=== PATIENT | female | born 1970 | race Caucasian/White ===

== ENCOUNTER → 2022-03-30 15:04 | Outpatient (BNVA) | payer OTHER, SELFPAY | PROVIDERS: PCP Internal Medicine; Visit Provider Nurse Practitioner Family | DX: G43.109 Migraine with aura, not intractable, without status migrainosus (principal); G47.19 Other hypersomnia; F07.81 Postconcussional syndrome; R06.83 Snoring; H57.12 Ocular pain, left eye; H93.8X2 Other specified disorders of left ear; Z79.899 Other long term (current) drug therapy | CPT/HCPCS: 99212 ==

== ENCOUNTER → 2022-04-10 13:03 | Outpatient (REF) | payer OTHER, SELFPAY | LOC: HO.SL 13:03 | PROVIDERS: PCP Internal Medicine; Visit Provider Nurse Practitioner Family | DX: G47.19 Other hypersomnia (principal); R06.83 Snoring; G47.9 Sleep disorder, unspecified | CPT/HCPCS: 95806 ==

== ENCOUNTER → 2022-06-08 14:45 | Outpatient (BNVA) | payer OTHER, SELFPAY | PROVIDERS: PCP Internal Medicine; Visit Provider Nurse Practitioner Family | DX: G93.2 Benign intracranial hypertension (principal); G43.109 Migraine with aura, not intractable, without status migrainosus; H57.12 Ocular pain, left eye; H93.8X2 Other specified disorders of left ear | CPT/HCPCS: 99212 ==

== ENCOUNTER 2022-07-24 09:40 | Day surgery (SDC) | payer OTHER, SELFPAY ==
--- NOTE | ~2022-07-24 | FL_ITS ---
EXAMINATION: XR LUMBAR PUNCTURE CLINICAL INFORMATION: Ocular pain left eye. Headache. COMPARISON: None available. TECHNIQUE/findings: Procedure and risks and benefits including bleeding, infection and headache were discussed with the patient and informed consent was obtained. The patient was positioned in the prone position. The lower back was prepped and draped in usual sterile fashion. The skin and soft tissues were anesthetized with 1% lidocaine plain. Using fluoroscopy guidance and initially a 22-gauge spinal, attempted access in the right interlaminar space at L3-L4 was made. This was unsuccessful. Subsequently, attempted access at the right interlaminar space at L4-L5 was made. This was unsuccessful. Subsequently, left interlaminar access at L4-L5 to the spinal canal was obtained using a 20-gauge spinal needle. Opening pressure was 21-22 cm of water. 6.5 mL of CSF fluid was removed FLUOROSCOPY TIME: 3.6 minutes Cumulative dose: 1 43 mgy. DAP 1.9 mg/sq m. 2 saved fluoroscopic images. FL/FL guided lumbar puncture LP IMPRESSION: Fluoroscopy-guided lumbar puncture.
[2022-07-24 09:55] VITALS: BMI 19.6
[2022-07-24 10:00] LABS: MANUAL DIFF FLAG NO
[2022-07-24 10:03] LABS: Basophils Percent Auto 0.8 % (0-2); Eosinophils Absolute Auto 0.2 X10*3/uL (0.0-0.4); Eosinophils Percent Auto 4.9 % (0-4); Hematocrit 34.2 % (37.0-47.0); Hemoglobin 10.6 g/dl (12.0-16.0); Lymphocytes Absolute Auto 1.9 X10*3/uL (1.2-4.9); Lymphocytes Percent Auto 51.2 % (20-40); Mean Corpuscular Hemoglobin 27.2 pg (27.0-33.0); Mean Corpuscular Volume 87.7 fL (80.0-98.0); Mean Platelet Volume 10.7 fL (9.4-12.3); Monocytes Absolute Auto 0.5 X10*3/uL (0.1-1.2); Neutrophils Absolute Auto 1.1 x10*3/uL (2.0-8.3); Neutrophils Percent Auto 29.1 % (45-73); Platelet Count 182 X10*3/uL (160-400); Red Cell Distribution Width 15.9 % (11.0-16.0); White Blood Count 3.7 X10*3/uL (4.8-10.8)
[2022-07-24 10:15] LABS: INTERNATIONAL NORM RATIO 0.9 (0.9-1.1); Prothrombin Time 10.2 SEC (10.0-13.1)
[2022-07-24 10:18] LABS: Partial Thromboplastin Time 30.5 SEC (26.0-36.4)
[2022-07-24 13:00] VITALS: BP 104/52; PULSE 58; RESP 20; TEMP 37.2; O2SAT 98
[2022-07-24 13:15] VITALS: BP 107/52; PULSE 54; RESP 18; O2SAT 99
[2022-07-24 13:30] VITALS: BP 112/66; PULSE 62; RESP 16; O2SAT 91
[2022-07-24 14:00] VITALS: BP 118/63; PULSE 65; RESP 16; O2SAT 99
[2022-07-24 14:30] VITALS: BP 127/73; PULSE 70; RESP 16
[2022-07-24 14:42] LABS: CSF Appearance Clear, Colorless; CSF Tube # 2
[2022-07-24 14:51] LABS: Glucose CSF 60 mg/dL; Total Protein CSF 22.7 mg/dL (15-45)
[2022-07-24 15:19] LABS: Appearance CSF HAZY
[2022-07-24 15:20] LABS: CSF Tube # 1; Color CSF PINK; Red Blood Cell CSF 182 MM*3; White Blood Cell CSF 0 MM*3
[2022-07-24 15:21] LABS: Appearance CSF CLEAR; CSF Tube # 4; CSF Volume 0.5 ML; Color CSF COLORLESS; Red Blood Cell CSF 0 MM*3; White Blood Cell CSF 0 MM*3
[2022-07-28 21:09] LABS: VDRL Qualitative CSF Nonreactive (Nonreactive)
== END 2022-07-24 14:58 | disposition home or self-care (01) ==
PROVIDERS: Radiology Diagnostic Radiology; PCP Internal Medicine; Visit Provider Nurse Practitioner Family
PROC: 009U3ZZ Drainage of Spinal Canal, Percutaneous Approach (ICD-10-PCS; CPT 62270; principal; 2022-07-24 11:00)
DX: H57.12 Ocular pain, left eye (principal); G93.2 Benign intracranial hypertension; G43.109 Migraine with aura, not intractable, without status migrainosus; H93.8X2 Other specified disorders of left ear; Z88.1 Allergy status to other antibiotic agents; Z88.2 Allergy status to sulfonamides; Z88.8 Allergy status to other drugs, medicaments and biological substances; Z91.040 Latex allergy status; L23.1 Allergic contact dermatitis due to adhesives
CPT/HCPCS: 36415; 62328; 82945; 84157; 85025; 85610; 85730; 86592; 87015; 87070; 87205; 89051

== ENCOUNTER 2023-06-28 08:42 | Outpatient (AMB) | payer OTHER, SELFPAY ==
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
[2023-06-28 08:57] VITALS: BP 124/70; PULSE 58; O2SAT 98; BMI 50.6
== END 2023-06-28 09:46 | disposition home or self-care (01) ==
PROVIDERS: PCP Internal Medicine; Visit Provider Nurse Practitioner Family
DX: G44.309 Post-traumatic headache, unspecified, not intractable (principal); F07.81 Postconcussional syndrome
CPT/HCPCS: 99214

== ENCOUNTER → 2023-06-28 08:42 | Outpatient (BNVA) | payer OTHER, SELFPAY | PROVIDERS: PCP Internal Medicine; Visit Provider Nurse Practitioner Family | DX: F07.81 Postconcussional syndrome (principal); G43.109 Migraine with aura, not intractable, without status migrainosus | CPT/HCPCS: 99212 ==

== ENCOUNTER 2024-01-06 15:26 | Outpatient (AMB) | payer OTHER, SELFPAY ==
[2024-01-06 15:33] VITALS: BMI 46.0
--- NOTE | 2024-01-06 15:33 | MHC.OFFVIS ---
Vital Signs 01/06/24 15:33 Height 5 ft 7 in Weight 294 lb BMI 46.0 Intake Visit Reasons: Follow up Intake Note: Patient presents for follow up. Allergies acetaminophen [From VICODIN] Allergy (Unknown, Verified 01/06/24 15:36) ITCHING adhesive tape Allergy (Unknown, Verified 01/06/24 15:36) Unknown cephalexin Allergy (Unknown, Verified 01/06/24 15:36) Itching clindamycin [CLINDAMYCIN] Allergy (Unknown, Verified 01/06/24 15:36) SWELLING codeine [CODEINE] Allergy (Unknown, Verified 01/06/24 15:36) ITCHING hydrocodone [HYDROCODONE] Allergy (Unknown, Verified 01/06/24 15:36) ITCHING hydromorphone Allergy (Unknown, Verified 01/06/24 15:36) Unknown Latex, Natural Rubber [LATEX, NATURAL RUBBER] Allergy (Unknown, Verified 01/06/24 15:36) SWELLING levofloxacin [From LEVAQUIN] Allergy (Unknown, Verified 01/06/24 15:36) SWELLING oxycodone [From Percocet] Allergy (Unknown, Verified 01/06/24 15:36) Itching phentermine [From Adipex-P] Allergy (Unknown, Verified 01/06/24 15:36) BLISTERS Sulfa (Sulfonamide Antibiotics) Allergy (Unknown, Verified 01/06/24 15:36) Itching tramadol [TRAMADOL] Allergy (Unknown, Verified 01/06/24 15:36) ITCHING SILK TAPE Allergy (Unknown, Uncoded 01/06/24 15:36) BLISTERS HPI Comments Details: 53-yr-old female presents for f/u visit for headache and sleep/hypersomnia d/o's. Pt reports that she had continued to have daytime fatigue, daytime sleepiness, and increasing migraines during the mid to end of the work week. She would then need to sleep for extended times. This was despite taking Adderall IR 10mg bid or 20mg IR qam. So her PCP did adjust her Adderall to Adderall Er 30mg qam w/ 10mg IR q afternoon prn- started on 12/25/2023. This dose does she more effective, although it may wear off between 12-1pm if she has a more active day and there is more background distractions. Avoiding coffee in the am helps- as this may make her more jittery. If she is sleepy, she may take a coffee at 12pm. She also started Wegovy ~ 4 weeks ago. She will be started on anemia tx w/ IV Iron infusions by Dr Shine, heme/onc. She states she is also being worked up for pancreatic CA d/t positive BRACA status. She did have the LP in July 2022, OP was 21-22 cmH2O w/ normal CSF studies. Her last eye exam did not show optic nerve swelling. She has an upcoming f/u eye exam. She continues to have 2-3 headache days per week, can be a 3 day headache or 3 separate 1-2 day headaches. She does have a more severe, disabling migraine 2 x's per month- which typically comes on through Saturday, w/ postdrome on Saturday but then can usually return to work. Having more nausea w/ attacks. She missed at least 1 week of work every month over the summer. She has not started Emgality as she was starting Wegovy and was not sure if she could take both together. She believes she has the loading dose at home. Using the Rizatriptan prn to - using only for the more severe headache, as she does not have enough. The Rizatriptan may not work at all. Has started prn Nurtec, usually effective if taken at the first sign. She may adjunct w/ Rizatriptan prn. Ondansetron is helpful for the nausea. Baseline headache characteristics: Aura: peripheral light flickering. F/b pain pressure in left than right eye, holocranial a/w photophobia, phonophobia, food sensitivity, nausea, vomiting if more severe, and difficulty sleeping when more severe. When the headache comes on w/o the aura, the headache is even more severe. [facility] [place] Medical History Osteoarthritis Osteoporosis BRCA2 gene mutation positive Anemia Surgical History H/O arthroscopy of shoulder History of reverse total replacement of shoulder joint H/O dilation and curettage History of bilateral fallopian tube excision H/O gastric bypass History of bunionectomy History of repair of rotator cuff History of carpal tunnel release History of shoulder surgery H/O breast implant History of breast surgery History of bilateral mastectomy History of bilateral oophorectomy Hx of ovarian cystectomy Hx of bariatric surgery Hx of appendectomy Hx of cholecystectomy Family History Mother Diabetes Carcinoma in situ of breast Malignant neoplasm of breast (female) Arthritis Father Carcinoma in situ of lung Paternal Grandfather Disease of liver Brother Depressive disorder Daughter ADHD (attention deficit hyperactivity disorder) Social History Alcohol intake: current Alcohol intake frequency: holidays/special occasions only Patient Tobacco Use Status: Never used Tobacco Physical Exam Vital Signs: BMI result Body Mass Index 46.0 Const General: cooperative, no acute distress and tired appearing Orientation/consciousness: patient oriented x3 Resp Effort & Inspection: normal respiratory effort and able to speak in complete sentences Neuro General: patient oriented x3 Cranial nerves: Yes CN's II-XII intact bilaterally Cognition (Neuro): normal cognition Psych Appearance: grossly normal Mental Status: mental status grossly normal Speech and movement: Normal speech and movement present Affect: normal affect Attitude: cooperative Assessment & Plan Assessment & Plan (1) Postconcussive syndrome: Code(s): F07.81 - Postconcussional syndrome Category: Medical (2) Migraine with aura: Code(s): G43.109 - Migraine with aura, not intractable, without status migrainosus Category: Medical (3) Excessive daytime sleepiness: Code(s): G47.19 - Other hypersomnia Category: Medical Plan Reviewed LP, in July 2022, OP was 21-22 cmH2O w/ normal CSF studies. Last eye exam did not show optic nerve swelling. Again f/u eye exam as scheduled. ? For overall headache and postconcussive management: Optimize good self-care, including but not limited to maintaining a healthy diet,? adequate fluid intake, adequate sleep, and engaging in regular physical activity. Track headaches. Concur with further optimizing her ADHDtx to reduce her cognitive strain, which may be triggering her end of work week migraine attacks. For acute headache treatment: Continue Nurtec ODT 75mg qd prn. May adjunct w/ Rizatripatn 10mg q 2 hs prn 9max 20mg/day). Continue Ondansetron ODT 4-8mg prn. Previous acute migraine medication trials: Sumatriptan- ineffective. Acute migraine medication contraindications: none at this time ? For headache prevention medication: Continue Riboflavin 400mg qam Continue Magnesium 400mg qhs Continue Verapamil 360mg qd. Continue Doxepin. Again start Emgality 240mg sc x's 1, then 120mg sc q month- however discussed that although side effect profile of CGRP MaBs are minimal, pt currently has a number of resolving health issues and will be undergoing major surgery, thus my request is for her to hold off on this until she is feeling better overall. Reviewed potential adverse effects of Emgality, including but not limited to injection site reactions. Previous migraine prevention medication trials: amitriptyline, topiramate gabapentin- ineffective.? Migraine prevention medication contraindications: I would avoid Aimovig d/t intermittent constipation and concomitant morphine use. Beta-blockers d/t bradycardia and pt already on higher dose of Verapamil. Future considerations- botox, acetazolamide. Coding Level of Care Code Est Pt Level 4 (56545) Diagnoses Postconcussive syndrome F07.81 Migraine with aura G43.109 Excessive daytime sleepiness G47.19
== END 2024-01-07 08:06 | disposition home or self-care (01) ==
PROVIDERS: PCP Internal Medicine; Visit Provider Nurse Practitioner Family
DX: G47.19 Other hypersomnia (principal); F07.81 Postconcussional syndrome; G44.309 Post-traumatic headache, unspecified, not intractable
CPT/HCPCS: 99214

== ENCOUNTER → 2024-01-06 15:26 | Outpatient (BNVA) | payer OTHER, SELFPAY | PROVIDERS: PCP Internal Medicine; Visit Provider Nurse Practitioner Family | DX: G43.109 Migraine with aura, not intractable, without status migrainosus (principal); G47.19 Other hypersomnia; F07.81 Postconcussional syndrome | CPT/HCPCS: 99212 ==

== ENCOUNTER 2024-07-30 15:06 | Outpatient (AMB) | payer OTHER, SELFPAY ==
[2024-07-30 15:09] VITALS: BP 110/60; PULSE 74; O2SAT 96; BMI 38.4
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
--- OUTSIDE RECORDS SUMMARY | 2024-07-30 15:45 | XMS_ITS | Clinical Summary ---
Author Organization [facility] Address [address] [place] [address] Phone Care Team Providers Care Hand Cutter Apprentice Name Role Phone Laurita Banegas MD Primary Care Provider [phone] Allergies Active Allergy Reactions Criticality Noted Date Comments Sulfamethoxazole-Trimethoprim 2024 Clindamycin 06/19/2024 Codeine 06/19/2024 Hydromorphone 06/19/2024 Cephalexin 06/19/2024 Latex 06/19/2024 Oxycodone-Acetaminophen 06/19/2024 Quinolones 06/19/2024 Tramadol 06/19/2024 Medications No known medications Active Problems No known active problems Encounters Date Type Department Care Team Description 06/19/2024 3:15 PM EDT Office Visit [facility] [address] [place] [address] Theo Camargo DO Other acute kidney failure (HCC) (Primary Dx); Monoclonal gammopathy of undetermined significance (MGUS) 06/16/2024 Documentation Only [facility] [address] [place] [address] Sophia Marley MA 06/16/2024 Telephone [facility] [address] [place] [address] Sophia Marley MA from Last 3 Months Social History Tobacco Use Types Packs/Day Years Used Date Smoking Tobacco: Never Assessed Comments Unknown Sex and Gender Information Value Date Recorded Sex Assigned at Not on file Legal Sex Female 9:03 AM EDT Gender Identity Not on file Sexual Orientation Not on file Plan of Treatment Upcoming Encounters Date Type Department Care Team (Late st Contact Info) Description 08/05/2024 4:00 PM EDT Office Visit [facility] [place], [address] [place] [id number] Theo Camargo, [address] [place] [address] Health Maintenance Due Date Last Done Comments Breast Cancer Screening 1970 Hepatitis B Vaccine (1 of 3 - 19+ 3-dose series) 09/13/1987 Pneumococcal Vaccine: 50+ Ye ars (1 of 2 - PCV) 09/13/1987 Colorectal Cancer Screening: Annual FOBT 2017 Colorectal Cancer Screening: Colonoscopy 2017 Colorectal Cancer Screening: Sigmoidoscopy 2017 Influenza Vaccine Completed 05/06/2024, , 01/30/2020, Additional history exists Insurance [facility] Medicaid Care Teams Hand Cutter Apprentice Relationship Specialty Start Date End Date Laurita Banegas MD [address] [facility] [address] [place] [address] PCP - General Family Medicine 06/16/24
--- OUTSIDE RECORDS SUMMARY | 2024-07-30 15:45 | XMS_ITS | Encounter Summary ---
Author Organization [facility] [place], Address [address] [place] [address] Phone Care Team Providers Care Can Maker Name Role Phone Laurita Banegas MD Primary Care Provider [phone]- [phone] Encounter Details Date Type Department Care Team (Late Contact Info) Description 06/16/2024 Documentation Only [facility] [address] [place] [place] [address] [place] [address] [place] [address] Social History Tobacco Use Types Packs/Day Years Used Date Smoking Tobacco: Never Assessed Comments Unknown Sex and Gender Information Value Date Recorded Sex Assigned at Not on file Legal Sex Female 9:03 AM EDT Gender Identity Not on file Sexual Orientation Not on file documented as of this encounter Plan of Treatment Upcoming Encounters Date Type Department Care Team (Late Contact Info) Description 08/05/2024 4:00 PM EDT Office Visit [facility] [address] [place] [address] Theo Camargo [address] [place] [address] documented as of this encounter Visit Diagnoses Not on filedocumented in this encounter Care Teams Can Maker Relationship Specialty Start Date End Date Laurita Banegas MD [address] [address] PCP - General Family Medicine 06/16/24 documented as of this encounter
--- OUTSIDE RECORDS SUMMARY | 2024-07-30 15:45 | XMS_ITS | Data Portability ---
Author Organization [place] - [facility], [facility] Address [address] [place] [id number] Care Team Providers Care Night Shift Supervisor Name Role Phone ARPITA-YU HOWARD Primary Care Provider [facility] OTHER Assessment Encounter Date Assessment Date Assessment LastModified by Organization Details LastModified Time 01/03/2019 01/03/2019 Overview/History : 48 yo female new to [facility] this provider who presents with complain of nausea, vomiting, diarrhea X12h. Patient reports that she had approximately 6-7 loose stools and vomited several times. She has been taking PO zofran that was prescribed for her along with pain medications she takes for pain due to recent lower extremity fracture. Patient denied fever, chills, abdominal pain, blood or mucus in the stool. Denied recent hospitalizations or abx treatment Comorbidities: HLD, HTN, gastric bypath surgery, recent right lower extremity fracture Exam: obese middle age female, who appears tired but otherwise well, no acute distress, non-toxic appearance; alert and oriented X4 Mucous membranes are mildly dry Heart sounds are regular rate and rhythm; no audible murmurs, rubs, or gallops No signs of respiratory distress. Lungs are clear to auscultation in all fileds Abdomen is soft, non tender, non distended. Bowel sounds are normoactive and present in all quadrants DDx considered, but not limited to: Gastroenteritis - most likely dx based on clinical presentation c.diff - unlikely; no recent abx treatment or hospitalizations pain medications side effets - possible; patient was recently started on pain medications for lower extremity fracture IBS - possible, however, no prior history and onset of symptoms is acute Work up/Results: Chem 8 - WNL Plan/Discussion: - based on clinical presentation and duration of symptoms, gastroenteritis is the most likely dx at this time - Zofran 4mg IV and NS IV bolus was given on scene for rehydration; patient tolerated procedure well - advised BRAT diet and PO fluids for hydration - Imodium for diarrhea - follow up with PCP as needed within 3-5 days or sooner if symptoms worsen or do not improve - advised when to seek immediate medical attention/911/ED - patient expressed understanding and agreed to tx plan In order to obtain further information and compare any laboratory results/values, I have accessed patient records on the [facility]. This information was pertinent in my medical decision making today. Time On Scene with Patient: 01:06:53 cesar Not available 01/03/2019 13:44:35 03/01/2019 03/01/2019 Overview/History : Pt is a 48yo F with PMH sig for HTN, HLD, and osteoporosis. Pt reports that she has been having intermittent redness, warmth and swelling to the right foot for the last few days but that it was worse today. She states that it has improved since when she called . She reports 5/10 pain to the area and states it is a dull ache most of the time but some times she gets jolts of pain. Exam: Pt is A/Ox3, non-toxic appearing, VSS, HRR, resp reg and unlabored on RA, lungs CTA bilat. Normal range of motion of right foot. Pt has a knee immobilizer in place d/t healing fracture to the right leg. Pt reports discomfort with palpation over the dorsal aspect of the foot to the lateral side. Trace edema noted to the right foot, good CMS present. Faint erythema noted over area of tenderness along with mild increase in warmth. No rash, or ecchymosis. Skin is clean dry and intact without evidence of wounds or lacerations. DDx considered, but not limited to: Swelling d/t healing fracture: pt has a healing fracture to the leg and leg is immoblized, swelling in foot may be related to this Cellultitis: possibe given reports of warmth, swelling and erythema, presentation is very mild and not clear for infection at time of visit Gout: unlikely given location of pain is to the lateral aspect of the foot. Septic joint: unlikely as sx are coming and going and erythema and warmth are mild. Work up/Results: no further work up at this time. Plan/Discussion: With shared decision making pt given script for doxy to use if sx worsen as pt has plans to fly to [place] on Saturday and will be out of the country. Pt advised to use only if swelling, redness and warmth become persistent and worse than at time of visit. Patients PCP contacted and updated on patient status. Patient verbalized understanding of discharge instructions and when to follow up with PCP/911/ED as needed. Patient in agreement with current plan and treatment. In order to obtain further information and compare any laboratory results/values, I have accessed old patient records. This information was pertinent in my medical decision making today. Time On Scene with Patient: 00:24:18 shannan Not available 03/01/2019 18:50:00 Plan of Treatment Reminders Order Date Submit Date Provider Last Modified By Organization Details Last Modified Time Details Appointments None recorded. Lab BMP + ionized calcium, serum or plasma [facility] [address] [place] [address], [phone], 12:55:30 Referral None recorded. Procedures None recorded. Surgeries None recorded. Imaging None recorded. Medication Orders doxycycli ne hyclate 100 mg tablet 2018 019 INTERFACE [id number], [address] [place], [address], 9 18:27:00 Imodium A-D 2 mg capsule 2018 019 shannan [id number], [address] [place], [address], 9 18:11:07 sodium chloride 0.9 % intraveno us solution 2018 019 shannan [id number], [address] [place], [address], 9 18:11:16 Zofran 2 mg/mL intraveno us solution 2018 019 shannan [id number], [address] [place], [address], 9 18:11:20 Patient TargetsNo targets recorded. Patient Instructions Encounter Date Encounter Id Patient Instructions Last Modified By Organization Details Last Modified Time 01/03/2019 [id number] diarrhea: care instructions cesar Not available 01/03/2019 12:55:30 Acute Nausea and Vomiting/Diarrhea YOU WERE SEEN FOR NAUSEA VOMITING AND DIARRHEA TODAY YOU HAVE GASTROENTERITIS MOST LIKELY OF VIRAL ETIOLOGY YOU WERE GIVEN ZOFRAN IV FOR NAUSEA AND IV FLUIDS FOR REHYDRATION YOUR BLOOD ELECTROLYTES WERE WITHIN NORMAL LIMITS PRESCRIPTION FOR IMODIUM WAS SEND TO YOUR PHARMACY PLEASE TAKE PRESCRIBED DRINK PLENTY OF FLUIDS TO STAY HYDRATED. GATORATE, SPORTS DRINKS OR PEDIALYTE ARE GOOD OPTIONS EAT BRAT (BANANA, RICE, APPLE SAUCE, TOAST) DIET UNTIL ABLE TO TOLERATE YOUR NORMAL DIET FOLLOW UP WITH YOUR PRIMARY CARE DOCTOR IF YOUR SYMPTOMS DO NOT RESOLVE IN 3-5 DAYS SEEK IMMEDIATE MEDICAL ATTENTION OR CALL 911 IF YOUR SYMPTOMS WORSEN OR IF YOU DEVELOP ANY NEW CONCERNING SYMPTOMS BASIC INFORMATION Acute nausea and vomiting often start suddenly, worsen quickly, and last a few hours to 24 hours. Nausea and vomiting most often occur together, although they can occur alone. Cases of acute nausea and vomiting are often from gastrointestinal viruses such as norovirus, rotavirus and influenza. Less often it can be caused by toxins released from food that ? g oes bad? as well as some types of bacteria and parasites. Diarrhea can also occur. Your nurse practitioner will conduct a careful history to help determine if you have one of the more serious causes. The cause of your nausea and vomiting may be unknown. INSTRUCTIONS Medicines: 1) Anti-nausea: You may have been given a prescription for an anti nausea medicine such as Zofran, Phenergan or Compazine. These can be used every 6-8 hours to help prevent nausea and vomiting. They can make you sleepy, so do not drive after taking them. Be sure to read all of the drug information from the pharmacy. 2) Tylenol: Low grade fever is common with acute nausea and vomiting. You may use Tylenol, per the recommended dosing on the label, to help control fever. If you have liver disease, do not use Tylenol. Ask your [employer] how to address fever if you are concerned about Tylenol use. 3) Anti-diarrheal medicines: These are available [id number], but in some cases are not recommended and can even worsen some cases of intestinal problems. Ask your [employer]HER if you should use them. In children under 12, the only anti-diarrheal that should be considered is Kaopectate. Diet: 1) For the next 12-24 hours, take clear liquids only. No dairy and no caffeinated beverages. After you have not vomited for a complete hour (either with or without the help of the anti-nausea medicine), begin by taking one tablespoon of clear liquid every 15 minutes for one hour. If you are able to tolerate this, you may increase the amount to 2 tablespoons every hour for the next 2 hours. 2) Clear liquids such as gatorade, pedialyte or broth are recommended because of the electrolytes and sugars that will help replenish the losses from vomiting and diarrhea. 3) If you are able to tolerate clear liquids as instructed above, you may begin to take a bland diet. Plain pasta/noodles or toast are suggestions. If you have had diarrhea, bananas, rice and applesauce are suggested as these can help make the stools more solid. Avoid greasy, fatty or fried foods FOLLOW UP You should make an appointment to see your primary care provider within 24 hours or sooner for worsening condition as described below. If you do not have a primary care doctor, you should follow up with one of the PCP suggestions from [facility]. SEEK CARE IMMEDIATELY IF: 1) You are still unable to tolerate any oral intake after 24 hours 2) You have blood in your vomit or stool 3) You develop severe abdominal pain that does not go away after an episode of vomiting or diarrhea 4) You have severe dizziness, heart palpitations or are passing out 5) You develop severe muscle cramps or weakness 6) You have not made urine in over 24 hours If you develop any new or worsening symptoms and need after hours care, please go to nearest ER and/or call 911. If you have additional concerns or develop a change in your condition between 8am-10pm, please call [facility] at [phone] to help navigate your care. [email or web address] Not available 01/03/2019 12:55:27 03/01/2019 [id number] Thank you for yo ur visit with [facility] today. We cannot always find the exact cause of your symptoms during your initial visit. You were seen today for swelling, redness and pain in your right foot. At this time its unclear if it is the start of cellulitis, as you have plans to leave the country later this week a script for Doxycycline has been sent to the pharmacy incase the redness, warmth and swelling return and worsen. Please do not take the antibiotic unless your symptoms worse. You should take the antibiotic with food to prevent upset stomach and should finish the full course of the antibiotic. Please follow up with your primary care provider or specialist as needed to be rechecked or seek medical attention if your symptoms do not go away or get worse. If you develop any new or worsening symptoms and need after hours care, please go to nearest ER and/or call 911. If you have additional concerns or develop a change in your condition between 8am-10pm, please call [facility] at [phone] to help navigate your care. shannan Not available 03/01/2019 18:26:26 Reason for Referral None Reported. Results Created Date Observation Date Name Description Value Unit Range Abnormal Flag Note LastModifiedBy Organization Detail LastModifiedTime 01/04/2001/03/2019 BMP + ioniz ed calci um, serum or plasm a Na 138 mmol/ L 138-14 6 Not Available [facility] [address] [place], [address], 01/03/2019 12:26:40 01/04/2001/03/2019 BMP + ioniz ed calci um, serum or plasm a K 3.9 mmol/ L 3.5-4. 9 Not Available [facility] [address] [place], [address], 01/03/2019 12:26:40 01/04/2001/03/2019 BMP + ioniz ed calci um, serum or plasm a cL 107 mmol/ L 98-109 Not Available [facility] [address] [place], [address], 01/03/2019 12:26:40 01/04/2001/03/2019 BMP + ioniz ed calci um, serum or plasm a ica 1.12 mmol/ L 1.12-1 .32 Not Available [facility] [address] [place], [address], 01/03/2019 12:26:40 01/04/2001/03/2019 BMP + ioniz ed calci um, serum or plasm a TCO2 23 mmol/ L 24-29 Not Available [facility] [address] [place], [address], 01/03/2019 12:26:40 01/04/2001/03/2019 BMP + ioniz ed calci um, serum or plasm a glu 110 mg/dL 70-105 Not Available [facility] [address] [place], [address], 01/03/2019 12:26:40 01/04/2001/03/2019 BMP + ioniz ed calci um, serum or plasm a BUN 31 mg/dL 8- Not Available [facility] [address] [place], [address], 01/03/2019 12:26:40 01/04/2001/03/2019 BMP + ioniz ed calci um, serum or plasm a crea 1.1 mg/dL .6-1.3 Not Available [facility] [address] [place], [address], 01/03/2019 12:26:40 01/04/2001/03/2019 BMP + ioniz ed calci um, serum or plasm a HCT 40 %_pcv 38-51 Not Available [facility] [address] [place], [address], 01/03/2019 12:26:40 01/04/2001/03/2019 BMP + ioniz ed calci um, serum or plasm a Hb 13.6 g/dL 12-17 Not Available [facility] [address] [place], [address], 01/03/2019 12:26:40 01/04/2001/03/2019 BMP + ioniz ed calci um, serum or plasm a angap 13 mmol/ L 10- Not Available [facility] [address] [place], [address], 01/03/2019 12:26:40 Result Notes None recorded. Problems Name Problem SNOMED Code Status Onset Date Resolution Date Notes Provider Name and Address Organization Details Recorded Time Hypertensive disorder 69542025 Active 2018 LAURIE YONAS , [facility] [address], [facility] [place], [address], [place] [facility] 9 18:11:34 Problem Notes None recorded. Procedures Surgical History Date Name Laterality Status Provider Name and Address Organization Details Recorded Time 9 IV Start Procedure - DH completed SHOBHA AMIN [address], [place], [address], [place] [facility] 01/03/2019 12:58:29 Imaging Results None recorded. Procedure Notes None recorded. Medical Equipment None Reported. Allergies Allergen ID Allergen Name Allergen Category Reaction Reaction Severity Criticality Documentation Date Start Date Code Code System Note Provider Name and Address Organization Details Recorded Time 72311 hydromorp regina medicatio n Not available Not available Not available 01/03/2019 3423 RxNorm SHOBHA AMIN [address], [place], [place], [address], [place] [facility] 9 12:13:03 72849 clindamyc in Not available Not available Not available Not available 01/03/2019 2582 RxNorm SHOBHA AMIN [address], [place], [place], [address], [place] [facility] 9 12:13:33 99817 tramadol medicatio n Not available Not available Not available 01/03/2019 11812 RxNorm SHOBHA AMIN [address], [place], [place], [address], [place] [facility] 9 12:13:43 54116 codeine medicatio n Not available Not available Not available 01/03/2019 2670 RxNorm SHOBHA AMIN [address], [place], [address], [place] [facility] 9 12:14:28 99383 levofloxa anna medicatio n Not available Not available Not available 01/03/2019 31767 RxNorm FRAN [place], [place] [address], [place], [address], [place] [facility] 9 12:14:45 65207 Dilaudid medicatio n Not available Not available Not available 01/03/2019 91486 3 RxNorm FRAN [place], [place] [address], [place], [address], [place] [facility] 9 12:15:27 17462 cephalexi n medicatio n Not available Not available Not available 01/03/2019 2231 RxNorm FRAN HATFIELD, SHOBHA [address], [place], [address], [place] [facility] 9 12:16:25 27794 acetamino phen / hydrocodo ne medicatio n Not available Not available Not available 01/03/2019 05744 2 RxNorm FRAN [place], [place] [address], [place], [address], [place] [facility] 9 12:16:55 03201 acetamino phen / oxycodone medicatio n Not available Not available Not available 01/03/2019 68430 3 RxNorm FRAN [place], SOHBHA [address], [place], [address], [place] [facility] 9 12:18:07 09684 Bactrim medicatio n Not available Not available Not available 01/03/2019 32652 9 RxNorm FRAN [place], [place] [address], [place], [address], [place] [facility] 9 12:18:55 45293 hydrocodo ne Not available Not available Not available Not available 01/03/2019 5489 RxNorm FRAN [place], [place] [address], [place], [address], [place] [facility] 9 12:19:27 17185 oxycodone medicatio n Not available Not available Not available 01/03/2019 7804 RxNorm SHOBHA AMIN [address] [facility] [place], [address], [place] [facility] 9 12:19:37 Medications Name Sig Start Date Stop Date Status Note LastModified by Organization Details LastModified Time amantadine HCl 100 mg tablet active Not Available Not Available Not Available doxycycline hyclate 100 mg capsule 01/03 completed Not Available Not Available Not Available loperamide 2 mg capsule Take 1 capsule by oral route. 03/01 completed Not Available Not Available Not Available azithromyci n 250 mg tablet 01/03 completed Not Available Not Available Not Available ibuprofen 800 mg tablet 01/03 completed Not Available Not Available Not Available tizanidine 4 mg tablet active Not Available Not Available Not Available Shila Junior 28 gauge 03/01 completed Not Available Not Available Not Available ondansetron HCl 4 mg tablet 03/01 completed Not Available Not Available Not Available erythromyci n 5 mg/gram (0.5 %) eye ointment 01/03 completed Not Available Not Available Not Available ferrous sulfate 325 mg (65 mg iron) tablet active Not Available Not Available Not Available lisinopril 10 mg tablet 03/01 completed Not Available Not Available Not Available gabapentin 300 mg capsule active Not Available Not Available Not Available Pain Relief Regular Strength 325 mg tablet active Not Available Not Available Not Available diclofenac sodium 75 mg tablet,john yed release active Not Available Not Available Not Available lisinopril 5 mg tablet active Not Available Not Available Not Available sodium chloride 0.9 % intravenous solution 1 L administe red on scene. Time administe red: 1230 03/01 completed Not Available Not Available Not Available ibuprofen 600 mg tablet 01/03 completed Not Available Not Available Not Available scopolamine 1 mg over 3 days transdermal patch active Not Available Not Available Not Available morphine 15 mg immediate release tablet active Not Available Not Available Not Available ondansetron 4 mg disintegrat ing tablet active Not Available Not Available N ot Available Zofran 2 mg/mL intravenous solution 4 mg IV administe red on scene. Time administe red: 1240 03/01 completed Not Available Not Available Not Available doxycycline hyclate 100 mg tablet Take 1 tablet twice a day by oral route for 10 days. 2018 active Not Available Not Available Not Avai lable metoclopram jazmin 10 mg tablet active Not Available Not Available Not Available amoxicillin 875 mg-potassiu m clavulanate 125 mg tablet 01/03 completed Not Available Not Available Not Available tobramycin 0.3 %-dexametha sone 0.1 % eye drops,suspe nsion 01/03 completed Not Available Not Available Not Available neomycin 3.5 mg/g-polymy marge B 10,000 unit/g-dexa meth 0.1 % eye oint 01/03 completed Not Available Not Available Not Available enoxaparin 40 mg/0.4 mL subcutaneou s syringe active Not Available Not Available No t Available FreeStyle Lite Meter kit 03/01 completed Not Available Not Available Not Available FreeStyle Lite Strips 03/01 completed Not Available Not Available Not Available Purelax 17 gram/dose oral powder active Not Available Not Available Not Available Vitals Date Recorded Body temperature Respiratory rate Oxygen saturation Oxygen saturation in Arterial blood by Pulse oximetry Heart rate Systolic blood pressure Diastolic blood pressure Provider Name and Address Organization Details Last Updated DateTime 9 98.7 [degF] 16 /min 97 % 97 % 72 /min 130 mm[Hg] 78 mm[Hg] Not Available [facility] 9 18:15:49 Date Recorded Heart rate Respiratory rate Body temperature Oxygen saturation Oxygen saturation in Arterial blood by Pulse oximetry Systolic blood pressure Diastolic blood pressure Provider Name and Address Organization Details Last Updated DateTime 9 64 /min 15 /min 98.5 [degF] 96 % 96 % 132 mm[Hg] 68 mm[Hg] Not Available [facility] 9 12:17:26 Social History Question Answer Notes LastModified by Organizat ion Details LastModified Time Tobacco Smoking Status Never Smoker SHOBHA AMIN [address], [place], [address], [place] - [facility] 01/03/2019 12:22:46 How Many Days In The Past Year Have You Had A Heavy Drinking Consumption (4+ Female, 5+ Male)? 0 Information not available 01/03/2019 Marital Status Informatio n not available 01/03/2019 What Was The Date Of Your Most Recent Tobacco Screening? 01/03/2019 Information not available 01/04/2019 Sex: Unknown Functional Status None recorded. Mental Status None recorded. Family History Relationship Description Onset Age of this Age Resolved Age Notes LastModified by Organization Details LastModified Time Mother Malignant tumor of breast [email or web address] Not available 2018 12:22:01 [facility] 12:22:35 Father Malignant neoplasm of lung nyuzych Not available 2018 12:22:18 Medical History Condition Response Diabetes N Coronary Artery Disease N High Cholesterol Y Pulmonary Embolism N Cancer Y Hypertension Y Stroke N COPD N Depression Y Asthma N Kidney Disease N Gynecological HistoryNo gynecological history recorded. Obstetrics History GPAL:G 0 P 0 0 0 0 Past Encounters Encounter ID Performer Location Encounter Start Date Encounter Closed Date Diagnosis/Indication Diagnosis SNOMED-CT Code Diagnosis ICD10 Code Diagnosis Note [id number] SHOBHA AMIN [facility] [address] [place] [address] 01/03/2019 12:09:09 01/07/2019 14:10:06 Acute vomiting 28512933 R11.10 Viral gastroenteritis 11 1817660 A08.4 Nausea 735627662 R11.0 Diarrhea 28331539 R19.7 [id number] LAURIE BRANHAM NP [facility] [address] [place] [address] 03/01/2019 18:10:12 03/01/2019 18:50:30 Swelling of lower leg 581861069 R22.40 Health Concerns Section Related Observation LastModified by Organization Detai ls LastModified Time None Recorded Concern Status LastModified by Organization Details LastModified Time None Recorded Advance Directives Directive None Recorded Payers Insurance Date Sequence Insurance Name Policy Number Policy Buchanan Covered Member ID Buchanan Member ID Guarantor Name 03/01/2019 1 [facility] (O) [id number] Mireya bowman [id number] Mireya Quintanilla 01/03/2019 1 *SELF PAY* Mireya Hand oyd [id number] Mireya Quintanilla 01/07/2019 1 [place] [facility] Mireya bowman [id number] Mireya Quintanilla 01/03/2019 1 [place] [facility] Mireya bowman [id number] Mireya Quintanilla Notes Date Note Type Note Provider Name and Address Organization Details Recorded Time 01/03/2019 text/html Mrs. Prem martinez is a 48 yo female new to [facility] provider who presents with complain of nausea, vomiting, diarrhea X12h. Patient reports that she had approximately 6-7 loose stools and vomited several times. She has been taking PO zofran that was prescribed for her along with pain medications she takes for pain due to recent lower extremity fracture. Patient denied fever, chills, abdominal pain, blood or mucus in the stool. SHOBHA AMIN [address], [place], [address], [place] - [facility] 01/03/2019 13:44:52 03/01/2019 text/html Pt reports some swelling and redness to the right foot that has been coming and going. Pt states she is nervous about taking any NSAIDs given that she has a healing fx. Pt reports pain to the foot, 5/10 while having morphine in her system. States that every now and then she will get a jolt of pain in the area, most of the time its a dull ache. LAURIE [facility] [address], [place], [id number], [place] [facility] 03/01/2019 18:50:05 OBGyn Episode No OBEpisode recorded.
--- OUTSIDE RECORDS SUMMARY | 2024-07-30 15:46 | XMS_ITS | Data Portability ---
Author Organization [facility], Main Office Address [address] [place] [id number] Care Team Providers Care Roll Picker Name Role Phone [facility] PATIENT SUPPORT PARTNER GROUP [facility] Director Gift SWATHI BACK Plastic/Reconstructive Surgeon LA NENA ROTHMAN Supervisor Ride Assembly HEIDY RODRÍGUEZ Hematology/Oncology KACY MOLINA [employer] Operations Intelligence Chief LASHA MATHEW Orthopedic Surgeon [phone] SUE BROWN Primary Care Provider Assessment Encounter Date Assessment Date Assessment LastModified by Organization Details LastModified Time 12/25/2023 12/25/2023 This service was provided using telemedicine. Patient consented to video & audio visit Patient was located in the [facility]. Provider was located in the office. No other persons participated in the telemedicine visit except for the patient unless otherwise indicated here. {{}} Total time of visit was 25 minutes. [email or web address] Not available 12/25/2023 15:14:04 02/19/2024 02/19/2024 Discussed with patient the signs/symptoms warranted for a return to office visit and/or an ER visit. Patient understood and agreed with the plan. Not available 02/19/2024 10:30:54 02/26/2024 02/26/2024 This service was provided using telemedicine. Patient consented to video & audio visit Patient was located in the [facility]. Provider was located in the office. No other persons participated in the telemedicine visit except for the patient unless otherwise indicated here. {{}} Total time of visit was 30 minutes. [email or web address] Not available 02/26/2024 14:25:30 Plan of Treatment Reminders Order Date Submit Date Provider Last Modified By Organization Details Last Modified Time Details Appointments FOLLOW UP 30MIN 2024 01:45P M SUE BROWN MD Not available Not available Not available Lab lipid panel, serum 2024 025 [facility], [address] [facility], [facility], [place], [address], 06/18/2024 16:04:23 cytome galovi annette (cmv) igg+ig m Ab, serum 2023 024 MIKE [facility] (Centralized Electronic Ordering - All Locations), Patient Can Go To The Location Of Their Choice, 06/04/2024 10:06:12 CBC w/ auto diff 2023 024 [facility] (Centralized Electronic Ordering - All Locations), Patient Can Go To The Location Of Their Choice, 06/04/2024 10:06:10 BMP, serum or plasma 2023 024 MIKE [facility] (Centralized Electronic Ordering - All Locations), Patient Can Go To The Location Of Their Choice, 06/04/2024 10:06:11 iron + total iron-b inding capaci ty (TIBC) , serum 2023 024 [facility] (Centralized Electronic Ordering - All Locations), Patient Can Go To The Location Of Their Choice, 02/20/2024 08:10:05 CBC w/ auto diff 2023 024 [facility] (Centralized Electronic Ordering - All Locations), Patient Can Go To The Location Of Their Choice, 02/20/2024 08:09:59 inflam mation panel, serum or plasma 2023 024 [facility] (Centralized Electronic Ordering - All Locations), Patient Can Go To The Location Of Their Choice, 02/20/2024 08:10:07 CMP, serum or plasma 2023 024 [facility] Patient Can Go To The Location Of Their Choice, [id number] 02/20/2024 08:10:01 hepati c functi on panel, serum 2023 024 [facility] Patient Can Go To The Location Of Their Choice, [id number] 02/20/2024 08:10:03 C diff toxin A+B, qual IA, stool 2023 024 [facility] (Centralized [facility] Ordering - All Locations), Patient Can Go To The Location Of Their Choice, [id number] 02/21/2024 10:06:29 Referral gyneco logist referr al - due for screen ing 2024 025 [email or web address] Mao Payne MD, [address], [place], [address], 06/18/2024 16:49:14 dermat ologis t referr al - worsen ing rash on bilate ral legs. 2023 024 [facility], [address], [place], [address], 03/25/2024 09:30:38 dermat ologis t referr al - Rash on legs, no change with steroi ds. 2023 024 rj Villafuerte, [address], [place], [address], 01/30/2024 09:46:49 sleep medici ne referr al - hx multip le concus sions, on multip le medica tions- morphi ne, doxepi n, tizani dine, citalo pram, diclof enac, gabape ntin, buprop ion, addera ll, buspir one. Excess daytim e sleepi ness, worse after addera ll wears off. Fallin g asleep during the day- cannot predic t when this will happen , happen s at work and at work. 2023 024 rj Christiansen MD, [address] [place] [address] Dr, [address], [place], [address], 06/24/2024 10:50:43 Procedures None record ed. Surgeries None record ed. Imaging CT, abdome n + pelvis , w/ contra st - sx for almost 2 weeks. RLQ and mid left abd pain, crampi ng, diarrh ea, XR shows stool retent ion, has worsen ing pain anytim e she eats or drinks , no fever, fatigu e, + nausea and dry heavin g. r.o divert iculit is vs coliti s [email or web address] [place] [address] (Radiology), [address] [place], [address], 02/27/2024 10:20:05 XR, abdome n, comple te - x2 weeks of GI sympto msHx of gastri c bypass (2006) and append ectomy /sara cystec vanessa (1991) , 2023 024 [facility], [address] [place], [address], 02/20/2024 17:28:41 MRI, breast , bilate ral, w/wo contra st - BRCA +, strong fam hx of breast CA, had bilate ral mastec vanessa with implan ts/ multip le surger ies of implan ts. Needs cancer screen ing. [email or web address] [place] [address] (Mri), [address] [place], [address], 01/14/2024 09:40:11 Medication Orders Zepbou nd 12.5 mg/0.5 mL subcut aneous pen inject or 2024 025 [facility]/Pharmacy #[id number], [address] [facility], [address], 07/23/2024 05:01:11 morphi ne 15 mg immedi ate releas e tablet 2024 025 [facility]/Pharmacy #[id number], [address] [place], [address], 06/18/2024 16:04:20 morphi ne ER 30 mg tablet ,exten ded releas e 2024 025 [id number] [address] [place], [address], 06/18/2024 16:04:20 ondans etron 4 mg disint egrati ng tablet 2023 024 [email or web address] [facility]/Pharmacy #[id number], [address] [facility], [address], 02/19/2024 10:56:09 Addera ll XR 30 mg capsul e,exte nded releas e 2023 024 [id number] [address] [place], [address], 12/25/2023 15:06:51 Patient TargetsNo targets recorded. Patient Instructions Encounter Date Encounter Id Patient Instructions Last Modified By Organization Details Last Modified Time 12/25/2023 [id number] To call or retur n for worsening or concerns [email or web address] Not available 12/25/2023 15:05:25 02/19/2024 [id number] nausea and vomiting: care instructions Not available 02/19/2024 10:49:45 02/26/2024 [id number] abdominal pain: care instructions [email or web address] Not available 02/26/2024 14:08:03 To call or retur n for worsening or concerns [email or web address] Not available 02/26/2024 14:01:23 06/18/2024 [id number] starting a weigh t loss plan: care instructions [email or web address] Not available 06/18/2024 16:04:17 Nutrition Referral and Weight Management Follow-up Information [email or web address] Not available 06/18/2024 16:04:17 granuloma annula r information [email or web address] Not available 06/18/2024 16:31:20 Cervical Cancer Screening [email or web address] Not available 06/18/2024 16:04:17 To call or retur n for worsening or concerns [email or web address] Not available 06/18/2024 16:00:13 07/01/2024 [id number] Patient will follow up and keep appointment as scheduled. [email or web address] Not available 07/01/2024 17:55:22 Reason for Referral Sleep Medicine Referral for Excessive daytime sleepiness - normal night sleep hx multiple concussions, on multiple medications- morphine, doxepin, tizanidine, citalopram, diclofenac, gabapentin, bupropion, adderall, buspirone. Excess daytime sleepiness, worse after adderall wears off. Falling asleep during the day- cannot predict when this will happen, happens at work and at work. Referring Physician: Cortez Franco [facility], Encounter Date: 12/25/2023 Story Analyst Referral for C ontact dermatitis Rash on legs, no change with steroids. Referring Physician: Cortez Franco [facility], Encounter Date: 12/25/2023 Story Analyst Referral for E ruption worsening rash on bilateral legs. Referring Physician: Cortez Franco [facility], Encounter Date: 02/26/2024 University Teacher Referral for Sc reening for malignant neoplasm of cervix due for screening Referring Physician: Cortez Franco [facility], Encounter Date: 06/18/2024 Results Created Date Observation Date Name Description Value Unit Range Abnormal Flag Note LastModifiedBy Organization Detail LastModifiedTime 02/19/2002/19/2024 CBC WITH DIFFE RENTI AL/PL ATELE T WBC 4.4 x10e3 /uL 3.4-10 .8 normal Not Available [facility] ([facility]) [address] [place], [address], 02/20/2024 08:09:59 02/19/2002/19/2024 CBC WITH DIFFE RENTI AL/PL ATELE T RBC 4.45 x10e6 /uL 3.77-5 .28 normal Not Available [facility] ([facility]) [address] [place], [address], 02/20/2024 08:09:59 02/19/20 24 02/19/2024 CBC WITH DIFFE RENTI AL/PL ATELE T hemoglobin 13.1 g/dL 11.1-1 5.9 normal Not Available [facility] ([facility]) [address] [facility], [place], [address], 02/20/2024 08:09:59 02/19/20 24 02/19/2024 CBC WITH DIFFE RENTI AL/PL ATELE T hematocrit 41.1 % 34.0-4 6.6 normal Not Available [facility] ([facility]) [address] [facility], [place], [address], 02/20/2024 08:09:59 02/19/20 24 02/19/2024 CBC WITH DIFFE RENTI AL/PL ATELE T MCV 92 fL 79-97 normal Not Available [facility] ([facility]) [address] [facility], [place], [address], 02/20/2024 08:09:59 02/19/20 24 02/19/2024 CBC WITH DIFFE RENTI AL/PL ATELE T MCH 29.4 pg 26.6-3 3.0 normal Not Available [facility] ([facility]) [address] [place], [address], 02/20/2024 08:09:59 02/19/20 24 02/19/2024 CBC WITH DIFFE RENTI AL/PL ATELE T MCHC 31.9 g/dL 31.5-3 5.7 normal Not Available [facility] ([facility]) [address] [place], [address], 02/20/2024 08:09:59 02/19/20 24 02/19/2024 CBC WITH DIFFE RENTI AL/PL ATELE T RDW 17.2 % 11.7-1 5.4 above high normal Not Available [facility] ([facility]) [address] [place], [address], 02/20/2024 08:09:59 02/19/20 24 02/19/2024 CBC WITH DIFFE RENTI AL/PL ATELE T platelets 186 x10e3 /uL 150-45 0 normal Not Available [facility] ([facility]) [address] [facility], [place], [address], 02/20/2024 08:09:59 02/19/20 24 02/19/2024 CBC WITH DIFFE RENTI AL/PL ATELE T neutrophils 53 % not estab. normal Not Available [facility] ([facility]) [address] [facility], [place], [address], 02/20/2024 08:09:59 02/19/20 24 02/19/2024 CBC WITH DIFFE RENTI AL/PL ATELE T lymphs 33 % not estab. normal Not Available [facility] ([facility]) [address] [facility], [place], [address], 02/20/2024 08:09:59 02/19/20 24 02/19/2024 CBC WITH DIFFE RENTI AL/PL ATELE T monocytes 11 % not estab. normal Not Available [facility] ([facility]) [address] [facility], [place], [address], 02/20/2024 08:09:59 02/19/20 24 02/19/2024 CBC WITH DIFFE RENTI AL/PL ATELE T eos 3 % not estab. normal Not Available [facility] ([facility]) [address] [facility], [place], [address], 02/20/2024 08:09:59 02/19/20 24 02/19/2024 CBC WITH DIFFE RENTI AL/PL ATELE T basos 0 % not estab. normal Not Available [facility] ([facility]) [address] [facility], [place], [address], 02/20/2024 08:09:59 02/19/20 24 02/19/2024 CBC WITH DIFFE RENTI AL/PL ATELE T immature cells FIRE FIGHTERS DISPATCHER Not Available [facility] ([facility]) [address] [place], [address], 02/20/2024 08:09:59 02/19/20 24 02/19/2024 CBC WITH DIFFE RENTI AL/PL ATELE T neutrophils (absolute) 2.3 x10e3 /uL 1.4-7. 0 normal Not Available [facility] ([facility]) [address] [place], [address], 02/20/2024 08:09:59 02/19/20 24 02/19/2024 CBC WITH DIFFE RENTI AL/PL ATELE T lymphs (absolute) 1.4 x10e3 /uL 0.7-3. 1 normal Not Available [facility] ([facility]) [address] [place], [address], 02/20/2024 08:09:59 02/19/20 24 02/19/2024 CBC WITH DIFFE RENTI AL/PL ATELE T monocytes(ab solute) 0.5 x10e3 /uL 0.1-0. 9 normal Not Available [facility] ([facility]) [address] [place], [address], 02/20/2024 08:09:59 02/19/20 24 02/19/2024 CBC WITH DIFFE RENTI AL/PL ATELE T eos (absolute) 0.1 x10e3 /uL 0.0-0. 4 normal Not Available [facility] ([facility]) [address] [place], [address], 02/20/2024 08:09:59 02/19/20 24 02/19/2024 CBC WITH DIFFE RENTI AL/PL ATELE T baso (absolute) 0.0 x10e3 /uL 0.0-0. 2 normal Not Available [facility] ([facility]) [address] [place], [address], 02/20/2024 08:09:59 02/19/20 24 02/19/2024 CBC WITH DIFFE RENTI AL/PL ATELE T immature granulocytes 0 % not estab. Not Available [facility] ([facility]) [address] [facility], [place], [address], 02/20/2024 08:09:59 02/19/20 24 02/19/2024 CBC WITH DIFFE RENTI AL/PL ATELE T immature grans (abs) 0.0 x10e3 /uL 0.0-0. 1 Not Available [facility] ([facility]) [address] [facility], [place], [address], 02/20/2024 08:09:59 02/19/20 24 02/19/2024 CBC WITH DIFFE RENTI AL/PL ATELE T NRBC FIRE FIGHTERS DISPATCHER Not Available [facility] ([facility]) [address] [facility], [place], [address], 02/20/2024 08:09:59 02/19/20 24 02/19/2024 CBC WITH DIFFE RENTI AL/PL ATELE T hematology comments: FIRE FIGHTERS DISPATCHER Not Available [facility] ([facility]) [address] [facility], [place], [address], 02/20/2024 08:09:59 02/19/20 24 02/19/2024 COMP. METAB OLIC PANEL (14) sodium 142 mmol/ L 134-14 4 normal Not Available [facility] ([facility]) [address] [facility], [place], [address], 02/20/2024 08:10:01 02/19/20 24 02/19/2024 COMP. METAB OLIC PANEL (14) potassium 4.2 mmol/ L 3.5-5. 2 normal Not Available [facility] ([facility]) [address] [facility], [place], [address], 02/20/2024 08:10:01 02/19/20 24 02/19/2024 COMP. METAB OLIC PANEL (14) chloride 102 mmol/ L 96-106 normal Not Available [facility] ([facility]) [address] [facility] [place], [address], 02/20/2024 08:10:01 02/19/20 24 02/19/2024 COMP. METAB OLIC PANEL (14) calcium 9.4 mg/dL 8.7-10 .2 normal Not Available [facility] ([facility]) [address] [facility] [place], [address], 02/20/2024 08:10:01 02/19/20 24 02/20/2024 COMP. METAB OLIC PANEL (14) glucose 105 mg/dL 70-99 above high normal Not Available [facility] ([facility]) [address] [facility] [place], [address], 02/20/2024 08:10:01 02/19/20 24 02/20/2024 COMP. METAB OLIC PANEL (14) BUN 19 mg/dL 6-24 normal Not Available [facility] ([facility]) [address] [facility] [place], [address], 02/20/2024 08:10:01 02/19/20 24 02/20/2024 COMP. METAB OLIC PANEL (14) creatinine 1.12 mg/dL 0.57-1 .00 above high normal Not Available [facility] ([facility]) [address] [facility] [place], [address], 02/20/2024 08:10:01 02/19/20 24 02/20/2024 COMP. METAB OLIC PANEL (14) eGFR 58 mL/mi n/1.7 3 >59 below low normal Not Available [facility] ([facility]) [address] [facility] [place], [address], 02/20/2024 08:10:01 02/19/20 24 02/20/2024 COMP. METAB OLIC PANEL (14) BUN/creatini ne ratio 17 9-23 normal Not Available [facility] ([facility]) [address] [place], [address], 02/20/2024 08:10:01 02/19/20 24 02/20/2024 COMP. METAB OLIC PANEL (14) carbon dioxide, total 20 mmol/ L 20-29 normal Not Available [facility] ([facility]) [address] [place], [address], 02/20/2024 08:10:01 02/19/20 24 02/20/2024 COMP. METAB OLIC PANEL (14) protein, total 7.0 g/dL 6.0-8. 5 normal Not Available [facility] ([facility]) [address] [place], [address], 02/20/2024 08:10:01 02/19/20 24 02/20/2024 COMP. METAB OLIC PANEL (14) albumin 4.2 g/dL 3.8-4. 9 normal Not Available [facility] ([facility]) [address] [place], [address], 02/20/2024 08:10:01 02/19/20 24 02/20/2024 COMP. METAB OLIC PANEL (14) globulin, total 2.8 g/dL 1.5-4. 5 Not Available [facility] ([facility]) [address] [place], [address], 02/20/2024 08:10:01 02/19/20 24 02/20/2024 COMP. METAB OLIC PANEL (14) bilirubin, total 0.3 mg/dL 0.0-1. 2 normal Not Available [facility] ([facility]) [address] [place], [address], 02/20/2024 08:10:01 02/19/20 24 02/20/2024 COMP. METAB OLIC PANEL (14) alkaline phosphatase 181 IU/L 44-121 above high normal Not Available [facility] ([facility]) [address] [place], [address], 02/20/2024 08:10:01 02/19/20 24 02/20/2024 COMP. METAB OLIC PANEL (14) AST (SGOT) 61 IU/L 0-40 above high normal Not Available [facility] ([facility]) [address] [place], [address], 02/20/2024 08:10:01 02/19/20 24 02/20/2024 COMP. METAB OLIC PANEL (14) ALT (SGPT) 73 IU/L 0-32 above high normal Not Available [facility] ([facility]) [address] [place], [address], 02/20/2024 08:10:01 02/19/20 24 02/20/2024 HEPAT IC FUNCT ION PANEL (7) bilirubin, direct 0.13 mg/dL 0.00-0 .40 normal Not Available [facility] ([facility]) [address] [place], [address], 02/20/2024 08:10:03 02/19/20 24 02/20/2024 IRON AND TIBC iron bind.cap.(TI BC) 305 ug/dL 250-45 0 normal Not Available [facility] ([facility]) [address] [facility] [place], [address], 02/20/2024 08:10:05 02/19/20 24 02/20/2024 IRON AND TIBC UIBC 242 ug/dL 131-42 5 normal Not Available [facility] ([facility] [address] [facility] [place], [address], 02/20/2024 08:10:05 02/19/20 24 02/20/2024 IRON AND TIBC iron 63 ug/dL 27-159 normal Not Available [facility] ([facility]) [address] [facility] [place], [address], 02/20/2024 08:10:05 02/19/20 24 02/20/2024 IRON AND TIBC iron saturation 21 % 15-55 normal Not Available [facility] ([facility]) [address] [place], [address], 02/20/2024 08:10:05 02/19/20 24 02/20/2024 ESR-W ES+CR P sedimentatio n rate-westerg lorraine 44 mm/HR 0-40 above high normal Not Available [facility] ([facility]) [address] [facility], [place], [address], 02/20/2024 08:10:06 02/19/20 24 02/20/2024 ESR-W ES+CR P C-reactive protein, quant 5 mg/L 0-10 normal Not Available [facility] ([facility]) [address] [place], [address], 02/20/2024 08:10:06 02/19/20 24 02/21/2024 C DIFFI CILE TOXIN S A+B, EIA C difficile toxins A+B, EIA Negati ve negati ve Not Available [facility] ([facility]) [address] [place], [address], 02/21/2024 10:06:28 06/04/19 25 06/04/2024 TSH+F REE T4 TSH 1.550 uIU/m L 0.450- 4.500 normal Not Available [facility] ([facility]) [address] [place], [address], 06/04/2024 10:06:06 06/04/19 25 06/04/2024 TSH+F REE T4 T4,free(dire ct) 1.51 NG/dL 0.82-1 .77 normal Not Available [facility] ([facility]) [address] [place], [address], 06/04/2024 10:06:06 06/04/19 25 06/04/2024 CBC WITH DIFFE RENTI AL/PL ATELE T WBC 4.9 x10e3 /uL 3.4-10 .8 normal Not Available [facility] ([facility]) [address] [place], [address], 06/04/2024 10:06:08 06/04/19 25 06/04/2024 CBC WITH DIFFE RENTI AL/PL ATELE T RBC 3.79 x10e6 /uL 3.77-5 .28 normal Not Available [facility] ([facility]) [address] [place], [address], 06/04/2024 10:06:08 06/04/19 25 06/04/2024 CBC WITH DIFFE RENTI AL/PL ATELE T hemoglobin 12.1 g/dL 11.1-1 5.9 normal Not Available [facility] ([facility]) [address] [place], [address], 06/04/2024 10:06:08 06/04/19 25 06/04/2024 CBC WITH DIFFE RENTI AL/PL ATELE T hematocrit 37.1 % 34.0-4 6.6 normal Not Available [facility] ([facility]) [address] [place], [address], 06/04/2024 10:06:08 06/04/19 25 06/04/2024 CBC WITH DIFFE RENTI AL/PL ATELE T MCV 98 fL 79-97 above high normal Not Available [facility] ([facility]) [address] [place], [address], 06/04/2024 10:06:08 06/04/19 25 06/04/2024 CBC WITH DIFFE RENTI AL/PL ATELE T MCH 31.9 pg 26.6-3 3.0 normal Not Available [facility] ([facility]) [address] [place], [address], 06/04/2024 10:06:08 06/04/19 25 06/04/2024 CBC WITH DIFFE RENTI AL/PL ATELE T MCHC 32.6 g/dL 31.5-3 5.7 normal Not Available [facility] ([facility]) [address] [facility], [place], [address], 06/04/2024 10:06:08 06/04/19 25 06/04/2024 CBC WITH DIFFE RENTI AL/PL ATELE T RDW 13.3 % 11.7-1 5.4 Not Available [facility] ([facility]) [address] [facility], [place], [address], 06/04/2024 10:06:08 06/04/19 25 06/04/2024 CBC WITH DIFFE RENTI AL/PL ATELE T platelets 156 x10e3 /uL 150-45 0 normal Not Available [facility] ([facility]) [address] [facility], [place], [address], 06/04/2024 10:06:08 06/04/19 25 06/04/2024 CBC WITH DIFFE RENTI AL/PL ATELE T neutrophils 47 % not estab. normal Not Available [facility] ([facility]) [address] [facility], [place], [address], 06/04/2024 10:06:08 06/04/19 25 06/04/2024 CBC WITH DIFFE RENTI AL/PL ATELE T lymphs 38 % not estab. normal Not Available [facility] ([facility]) [address] [place], [address], 06/04/2024 10:06:08 06/04/19 25 06/04/2024 CBC WITH DIFFE RENTI AL/PL ATELE T monocytes 11 % not estab. normal Not Available [facility] ([facility]) [address] [place], [address], 06/04/2024 10:06:08 06/04/19 25 06/04/2024 CBC WITH DIFFE RENTI AL/PL ATELE T eos 3 % not estab. normal Not Available [facility] ([facility]) [address] [facility], [place], [address], 06/04/2024 10:06:08 06/04/19 25 06/04/2024 CBC WITH DIFFE RENTI AL/PL ATELE T basos 1 % not estab. normal Not Available [facility] ([facility]) [address] [facility], [place], [address], 06/04/2024 10:06:08 06/04/19 25 06/04/2024 CBC WITH DIFFE RENTI AL/PL ATELE T immature cells FIRE FIGHTERS DISPATCHER Not Available [facility] ([facility]) [address] [facility], [place], [address], 06/04/2024 10:06:08 06/04/19 25 06/04/2024 CBC WITH DIFFE RENTI AL/PL ATELE T neutrophils (absolute) 2.3 x10e3 /uL 1.4-7. 0 normal Not Available [facility] ([facility]) [address] [place], [address], 06/04/2024 10:06:08 06/04/19 25 06/04/2024 CBC WITH DIFFE RENTI AL/PL ATELE T lymphs (absolute) 1.8 x10e3 /uL 0.7-3. 1 normal Not Available [facility] ([facility]) [address] [place], [address], 06/04/2024 10:06:08 06/04/19 25 06/04/2024 CBC WITH DIFFE RENTI AL/PL ATELE T monocytes(ab solute) 0.5 x10e3 /uL 0.1-0. 9 normal Not Available [facility] ([facility]) [address] [place], [address], 06/04/2024 10:06:08 06/04/19 25 06/04/2024 CBC WITH DIFFE RENTI AL/PL ATELE T eos (absolute) 0.2 x10e3 /uL 0.0-0. 4 normal Not Available [facility] ([facility]) [address] [facility], [place], [address], 06/04/2024 10:06:08 06/04/19 25 06/04/2024 CBC WITH DIFFE RENTI AL/PL ATELE T baso (absolute) 0.0 x10e3 /uL 0.0-0. 2 normal Not Available [facility] ([facility]) [address] [facility], [place], [address], 06/04/2024 10:06:08 06/04/19 25 06/04/2024 CBC WITH DIFFE RENTI AL/PL ATELE T immature granulocytes 0 % not estab. Not Available [facility] ([facility]) [address] [place], [address], 06/04/2024 10:06:08 06/04/19 25 06/04/2024 CBC WITH DIFFE RENTI AL/PL ATELE T immature grans (abs) 0.0 x10e3 /uL 0.0-0. 1 Not Available [facility] ([facility]) [address] [place], [address], 06/04/2024 10:06:08 06/04/19 25 06/04/2024 CBC WITH DIFFE RENTI AL/PL ATELE T NRBC FIRE FIGHTERS DISPATCHER Not Available [facility] ([facility]) [address] [place], [address], 06/04/2024 10:06:08 06/04/19 25 06/04/2024 CBC WITH DIFFE RENTI AL/PL ATELE T hematology comments: FIRE FIGHTERS DISPATCHER Not Available [facility] ([facility]) [address] [place], [address], 06/04/2024 10:06:08 06/04/19 25 06/04/2024 COMP. METAB OLIC PANEL (14) glucose 87 mg/dL 70-99 normal Not Available [facility] ([facility]) [address] [place], [address], 06/04/2024 10:06:08 06/04/19 25 06/04/2024 COMP. METAB OLIC PANEL (14) BUN 48 mg/dL 6-24 above high normal Not Available [facility] ([facility]) [address] [place], [address], 06/04/2024 10:06:08 06/04/19 25 06/04/2024 COMP. METAB OLIC PANEL (14) creatinine 1.75 mg/dL 0.57-1 .00 above high normal Not Available [facility] ([facility]) [address] [place], [address], 06/04/2024 10:06:08 06/04/19 25 06/04/2024 COMP. METAB OLIC PANEL (14) eGFR 34 mL/mi n/1.7 3 >59 below low normal Not Available [facility] ([facility]) [address] [place], [address], 06/04/2024 10:06:08 06/04/19 25 06/04/2024 COMP. METAB OLIC PANEL (14) BUN/creatini ne ratio 27 9-23 above high normal Not Available [facility] ([facility]) [address] [place], [address], 06/04/2024 10:06:08 06/04/19 25 06/04/2024 COMP. METAB OLIC PANEL (14) sodium 137 mmol/ L 134-14 4 normal Not Available [facility] ([facility]) [address] [place], [address], 06/04/2024 10:06:08 06/04/19 25 06/04/2024 COMP. METAB OLIC PANEL (14) potassium 4.3 mmol/ L 3.5-5. 2 normal Not Available [facility] ([facility]) [address] [facility] [place], [address], 06/04/2024 10:06:08 06/04/19 25 06/04/2024 COMP. METAB OLIC PANEL (14) chloride 99 mmol/ L 96-106 normal Not Available [facility] ([facility]) [address] [facility] [place], [address], 06/04/2024 10:06:08 06/04/19 25 06/04/2024 COMP. METAB OLIC PANEL (14) carbon dioxide, total 21 mmol/ L 20-29 normal Not Available [facility] ([facility]) [address] [facility] [place], [address], 06/04/2024 10:06:08 06/04/19 25 06/04/2024 COMP. METAB OLIC PANEL (14) calcium 9.4 mg/dL 8.7-10 .2 normal Not Available [facility] ([facility]) [address] [facility] [place], [address], 06/04/2024 10:06:08 06/04/19 25 06/04/2024 COMP. METAB OLIC PANEL (14) protein, total 6.8 g/dL 6.0-8. 5 normal Not Available [facility] ([facility]) [address] [facility] [place], [address], 06/04/2024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 Address Organization Details Recorded Time 48641 clindamyc in Not available angioedem a severe Not available 11/23/2013 2582 RxNorm Brandy Osorio null, [facility] 4 10:13:47 36328 Bactrim medicatio n itching Not available Not available 11/23/20132013 45951 9 RxNorm Carroll Letty-Rubia calvert [place] null, [facility] 1 08:54:05 82583 cephalexi n medicatio n itching moderate Not available 11/23/2013 2231 RxNorm Nava Arcos null, [facility] 9 09:33:41 08719 levofloxa anna medicatio n other severe Not available 01/15/2014 91176 RxNorm Nava Arcos [facility], [facility] 9 09:33:41 29094 Dilaudid medicatio n itching severe Not available 09/21/2014 61136 3 RxNorm Swell ing Brandy Coopert null, [facility] 5 11:46:49 27199 tramadol medicatio n itching moderate Not available 09/21/2014 22588 RxNorm Nava Arcos [facility], [facility] 9 09:33:41 39120 codeine medicatio n hives Not available Not available 05/27/20152016 2670 RxNorm Nava Arcos ilana, [facility] 9 09:32:47 86972 adhesive tape environme nt,medica tion rash severe Not available 08/12/2018 09309 UNK Steri strip s NERY Benjamin, [facility] 3 13:50:34 53621 latex environme nt,medica tion Not available Not available Not available 08/12/20182013 77964 91 RxNorm Nava Isrrael preciado, [facility] 9 09:33:41 33695 clindamyc in hydrochlo ride medicatio n Not available Not available Not available 08/18/20182016 51726 RxNorm Carroll NERY Palmer [facility] 1 08:54:30 32296 hydromorp regina medicatio n Not available Not available Not available 08/18/20182016 3423 RxNorm Nava Isrrael preciado [facility] 9 09:32:47 38352 Keflex medicatio n itching Not available Not available 08/18/20182013 16647 7 RxNorm Nava Isrrael preciado [facility] 9 09:33:40 21598 acetamino phen / oxycodone medicatio n itching Not available Not available 08/18/20182013 57332 3 RxNorm Nava Isrrael preciado [facility] 9 09:33:40 25878 acetamino phen / hydrocodo ne medicatio n itching Not available Not available 08/18/20182013 43991 2 RxNorm Nava Isrrael preciado [facility] 9 09:33:40 19876 Medicinal product acting as adhesive (product) environme nt,medica tion Not available Not available Not available 08/18/20182013 67314 2009 SNOMED Carroll NERY Palmer [facility] 0 15:36:25 20786 Substance with sulfonami de structure and antibacte rial mechanism of action (substanc e) medicatio n itching Not available Not available 05/04/2020 59863 8003 SNOMED BACTR IM NERY Harris [facility] 1 08:54:25 Medications Name Sig Start Date Stop Date Status Note LastModified by Organization Details LastModified Time d3-50 90267 unit caps take 1 tab daily po 11/10 completed Not Available Not Available Not Available MAGIC MOUTHWASH Shake bottle well. Swish, gargle and spit out 1-2 tsp (5-10mL) every 4-6 hours, as needed 2023 active Not Available Not Available Not Avai lable tizanidin e hcl 4 mg tabs active Not Available Not Available Not Available azithromy anna 250 mg tabs 05/26 completed Not Available Not Available Not Available cheratuss in ac 100-10 mg/5ml syrp 05/26 completed Not Available Not Available Not Available meloxicam 15 mg tabs 1 tablet daily by mouth active Not Available Not Available No t Available compound drug 11/19 completed Not Available Not Available Not Available ibuprofen 800 mg tabs active Not Available Not Available Not Available morphine sulfate 15 mg tabs 05/26 completed Not Available Not Available Not Available naproxen 500 mg tabs active Not Available Not Available Not Available Prescript ion - Prior Authoriza tion Request 11/05 completed Not Available Not Available Not Available trazodone hcl 50 mg tabs active Not Available Not Available Not Available proair hfa 108 (90 base) mcg/act aers active Not Available Not Available Not Available verapamil ER (SR) 120 mg tablet,ex tended release TAKE 3 CAPSULES BY MOUTH EVERY DAY 06/18 completed *only takes this if 360 mg capsule is not availabl e* Not Available Not Available Not Available amantadin e HCl 100 mg tablet TAKE 1 TABLET BY MOUTH TWICE A DAY 05/16 completed Not Available Not Available Not Available carisopro dol 350 mg tablet Take 1 tablet 3 times a day by oral route as directed for 4 days. 02/01 completed Not Available Not Available Not Available cyclobenz aprine 10 mg tablet EVERY 8 HRS active RECORDED 01/30/20 13 7:16PM BY SHOBHA HILLMAN, ANNOTATI ON/ADDEN DUM; Not Available Not Available Not Available amoxicill in 500 mg capsule TWO TIMES DAILY 12/17 completed Not Available Not Available Not Available azithromy anna 250 mg capsule DAILY 06/18 completed RECORDED 08/06/19 10 3:35PM BY LEO MANN PA-C, MEDICATI ON AUTO-ALICE CTIVATIO N;TWO TABS DAY 1, AND THEN 1 TAB DAILY X 4 DAYS Not Available Not Available Not Available dextroamp hetamine- amphetami ne 7.5 mg tablet TAKE 1 TABLET BY MOUTH TWICE A DAY 12/24 completed Not Available Not Available Not Available clotrimaz ole 10 mg nicki SLOWLY DISSOLVE IN MOUTH 5 TIMES PER DAY 09/17 completed RECORDED 10/10/19 13 7:39AM BY SHOBHA HILLMAN, MEDICATI ON AUTO-ALICE CTIVATIO N; Not Available Not Available Not Available buspirone 5 mg tablet TAKE 1 TABLET BY MOUTH TWICE A DAY 02/18 completed Not Available Not Available Not Available silver sulfadiaz ine 1 % topical cream 07/11 completed Not Available Not Available Not Available prednison e 10 mg tablet Take 1 tablet every day by oral route for 5 days. 05/16 completed Not Available Not Available Not Available doxycycli ne hyclate 100 mg capsule TAKE 1 CAPSULE BY MOUTH TWICE A DAY FOR 7 DAYS 03/31 completed Not Available Not Available Not Available nabumeton e 750 mg tablet TWO TIMES DAILY PRN PAIN 02/27 completed RECORDED 04/09/19 14 2:09PM BY SHOBHA HILLMAN, MEDICATI ON AUTO-ALICE CTIVATIO N; Not Available Not Available Not Available Saline Mist 0.65 % nasal spray aerosol Take 1 spray every day by nasal route for 30 days. 2022 active Not Available Not Available Not Avai lable tizanidin e 2 mg tablet TAKE 2 TABLET BY MOUTH 3 TIMES A DAY 04/18 completed Not Available Not Available Not Available verapamil 40 mg tablet TAKE 1 TABLET BY MOUTH EVERY DAY (TAKE WITH VERAPAMI L 300 MG) 05/22 completed Not Available Not Available Not Available verapamil ER 360 mg 24 hr capsule,e xtended release TAKE 1 CAPSULE BY MOUTH EVERY DAY DIRECTED active Not Available Not Available No t Available loperamid e 2 mg capsule Take 1 capsule as needed by oral route for 14 days. 04/02 completed for diarrhea Not Available Not Available Not Available trazodone 50 mg tablet TAKE 2 TABLETS NEEDED BY ORAL ROUTE AT BEDTIME 04/18 completed causes nasal congesti on Not Available Not Available Not Available azithromy anna 250 mg tablet TAKE 2 TABLETS BY MOUTH TODAY, THEN TAKE 1 TABLET DAILY FOR 4 DAYS DIRECTED 09/04 completed Not Available Not Available Not Available ibuprofen 800 mg tablet TAKE 1 TABLET BY MOUTH EVERY 8 HOURS FOR 5 DAYS 12/17 completed Not Available Not Available Not Available Lidocaine Viscous 2 % mucosal solution TAKE 15 ML BY MOUTH 4 TIMES A DAY NEEDED FOR 5 DAYS. 01/03 completed Not Available Not Available Not Available tizanidin e 4 mg tablet TAKE 1 TABLET BY MOUTH THREE TIMES A DAY DIRECTED FOR 30 DAYS active Not Available Not Available No t Available fluconazo le 150 mg tablet Take 1 tablet every 72 hours by oral route as directed . 04/18 completed Not Available Not Available Not Available benzonata te 200 mg capsule Take 1 capsule 3 times a day by oral route as directed for 10 days. 11/19 completed Not Available Not Available Not Available doxepin 25 mg capsule TAKE 1 CAPSULE BY MOUTH AT BEDTIME. active Not Available Not Available No t Available citalopra m 10 mg tablet TAKE 1 TABLET BY MOUTH EVERY DAY 10/06 completed Not Available Not Available Not Available valacyclo vir 1 gram tablet Take 1 tablet every 8 hours by oral route for 7 days. 04/06 completed Not Available Not Available Not Available hydrocodo ne 5 mg-acetam inophen 325 mg tablet active Not Available Not Available Not Available fluconazo le 200 mg tablet TAKE 1 TABLET EVERY DAY BY ORAL ROUTE DIRECTED FOR 14 DAYS. 07/18 completed Not Available Not Available Not Available meloxicam 15 mg tablet TAKE 1 TABLET BY MOUTH DAILY NEEDED FOR PAIN FOR 30 DAYS active Not Available Not Available No t Available FreeStyle Lancets 28 gauge Take 1 each every day by miscell. route for 30 days. 03/13 completed Not Available Not Available Not Available sumatript an 25 mg tablet AT ONSET OF HEADACHE , MAY REPEAT ONCE AFTER 2 HOURS 04/22 completed RECORDED 04/22/19 13 10:36AM BY LEO MANN PA-C, MAKENNA ON/RITA DUM; Not Available Not Available Not Available ondansetr on HCl 4 mg tablet TAKE 1 TABLET BY MOUTH 3 TIMES A DAY NEEDED FOR 5 DAYS 05/22 completed PRN Not Available Not Available Not Available prednison e 20 mg tablet TAKE 2 TABLETS BY MOUTH EVERY DAY WITH MEALS FOR 5 DAYS 07/19 completed Not Available Not Available Not Available dextroamp hetamine- amphetami ne 10 mg tablet Take 1 tablet twice a day by oral route for 30 days. 02/18 completed Not Available Not Available Not Available rizatript an 10 mg tablet TAKE 1 TABLET BY MOUTH EVERY DAY NEEDED FOR PAIN active Not Available Not Available No t Available verapamil ER (SR) 180 mg tablet,ex tended release TAKE 2 TABLETS BY MOUTH ONCE DAILY IN THE MORNING (REPLACE S 360 MG WHILE ON BACKORDE R) 08/18 completed TAKING AT [facility], only takes if 360 mg not availabl e Not Available Not Available Not Available permethri n 5 % topical cream APPLY (THOROUG HLY MASSAGE INTO SKIN FROM HEAD TO SOLES OF FEET) BY TOPICAL ROUTE ONCE LEAVE ON FOR 8-14 HR, THEN REMOVE BY THOROUGH WASHING 05/22 completed Not Available Not Available Not Available penicilli n V potassium 500 mg tablet THREE TIMES A DAY 12/24 completed Not Available Not Available Not Available metronida zole 500 mg tablet EVERY EIGHT HOURS 10/26 completed RECORDED 10/27/19 09 2:46PM BY ADIS Cristobal NP, MEDICATI ON AUTO-ALICE CTIVATIO N; Not Available Not Available Not Available melatonin 3 mg tablet TAKE 2 TABLETS BY MOUTH AT BEDTIME 10/27 completed Not Available Not Available Not Available doxepin 10 mg capsule TAKE 1 CAPSULE BY MOUTH EVERYDAY AT BEDTIME 05/01 completed Not Available Not Available Not Available valacyclo vir 500 mg tablet TAKE 1 TABLET BY MOUTH TWICE A DAY DIRECTED active Not Available Not Available No t Available ciproflox acin 500 mg tablet TWO TIMES DAILY 10/26 completed RECORDED 10/27/19 09 2:46PM BY ADIS Cristobal NP, MEDICATI ON AUTO-ALICE CTIVATIO N; Not Available Not Available Not Available morphine ER 30 mg tablet,ex tended release Take 1 tablet every 12 hours by oral route as directed for 30 days. 2024 active Not Available Not Available Not Avai lable sulfameth oxazole 800 mg-trimet hoprim 160 mg tablet 07/11 completed Not Available Not Available Not Available peg-elect rolyte solution 420 gram oral solution 11/29 completed Not Available Not Available Not Available tramadol 50 mg tablet TAKE 1 TABLET BY MOUTH EVERY 4 TO 6 HOURS NEEDED (DO NOT DRIVE WHILE ON THIS MEDICATI ON) 02/01 completed Not Available Not Available Not Available amitripty line 50 mg tablet Take 1 tablet every day by oral route as directed for 30 days. 02/01 completed Not Available Not Available Not Available amantadin e HCl 100 mg capsule 11/24 completed Not Available Not Available Not Available acetamino phen 500 mg tablet TAKE 2 TABLETS BY MOUTH EVERY 8 HOURS NEEDED FOR PAIN 06/08 completed OTC Not Available Not Available Not Available butalbita l-acetami nophen-ca ffeine 50 mg-325 mg-40 mg tablet TAKE 1 TAB BY MOUTH EVERY 4 HOURS NEEDED FOR HEADACHE FOR 30 DAYS MAX 4 TABS PER DAY FOR HEADACHE 02/18 completed ON HOLD Not Available Not Available Not Available verapamil ER 180 mg 24 hr capsule,e xtended release TAKE 2 CAPSULES EVERY DAY BY MOUTH DIRECTED 2024 active Not Available Not Available Not Avai lable oxycodone -acetamin ophen 5 mg-325 mg tablet AT BEDTIME PRN PAIN 2012 active RECORDED 08/06/19 13 4:04PM BY SHOBHA HILLMAN, OFFICE VISIT; Not Available Not Available Not Available Adderall XR 30 mg capsule,e xtended release Take 1 capsule every day by oral route as directed for 90 days. active Not Available Not Available No t Available zolmitrip qureshi 2.5 mg tablet ONE TIME AT ONSET OF HEADACHE MAY REPEAT AFTER 2 H 04/24 completed RECORDED 04/24/19 13 10:34AM BY LEO MANN PAZurdoC, MAKENNA ON/ADDEN DUM; Not Available Not Available Not Available calcium 600 mg (as calcium carbonate 1,500 mg) tablet Take 1 tablet every day by oral route as needed for 30 days. 01/27 completed Not Available Not Available Not Available Fluticaso ne Propionat e (Inhal) 50 mcg/BLIST inhl powd EACH NOSTRIL DAILY 12/26 completed RECORDED 12/27/19 12 11:25AM BY ROXANA DEGUTIS, ANNOTATI ON/ADDEN DUM; Not Available Not Available Not Available amoxicill in 875 mg tablet THREE TIMES DAILY 11/24 completed RECORDED 12/02/19 13 8:37AM BY SHOBHA HILLMAN, MEDICATI ON AUTO-ALICE CTIVATIO N; Not Available Not Available Not Available hydromorp regina 2 mg tablet active Not Available Not Available Not Available citalopra m 20 mg tablet TAKE 1 TABLET BY MOUTH EVERY DAY active Not Available Not Available No t Available amitripty line 25 mg tablet TAKE 1 TABLET BY MOUTH EVERY DAY DIRECTED 02/01 completed Not Available Not Available Not Available magnesium oxide 400 mg (241.3 mg magnesium ) tablet TAKE 1 TABLET BY MOUTH EVERYDAY AT BEDTIME active Not Available Not Available No t Available lorazepam 0.5 mg tablet DAILY 12/22 completed RECORDED 12/26/19 12 2:59PM BY LEO MANN PA-C, MEDICATI ON AUTO-ALICE CTIVATIO N; Not Available Not Available Not Available triamcino lone acetonide 0.1 % dental paste Take 1 applicat ion every day by dental route at bedtime for 7 days. 01/03 completed Not Available Not Available Not Available aspirin 325 mg tablet,de layed release TAKE 1 TABLET BY MOUTH EVERY DAY *TO START THE DAY AFTER SURGERY* 02/01 completed Not Available Not Available Not Available ferrous fumarate- vitamin C 200 mg (66 mg iron)-125 mg tablet DAILY 08/26 completed RECORDED 08/27/19 12 2:30PM BY BRANDY OSORIO MA, OFFICE VISIT; Not Available Not Available Not Available amitripty line 10 mg tablet Take 5 tablets every day by oral route at bedtime for 30 days. active Not Available Not Available No t Available Proctozon e-HC 2.5 % topical cream perineal applicato r APPLY A THIN LAYER TO THE AFFECTED AREA(S) BY TOPICAL ROUTE 2-4 TIMESDAI LY 2020 active Not Available Not Available Not Avai lable diazepam 2 mg tablet active Not Available Not Available Not Available baclofen 10 mg tablet THREE TIMES DAILY, NEEDED 02/11 completed RECORDED 02/12/20 13 1:17PM BY SHOBHA HILLMAN, MEDICATI ON AUTO-ALICE CTIVATIO N; Not Available Not Available Not Available benzonata te 100 mg capsule Take 1 capsule 3 times a day by oral route as needed for 5 days. 08/23 completed Not Available Not Available Not Available cephalexi n 500 mg capsule 07/11 completed Not Available Not Available Not Available erythromy anna 5 mg/gram (0.5 %) eye ointment APPLY 1 CM RIBBON INTO THE LOWER CONJUNCT IVAL SAC(S) IN THE AFFECTED EYE(S) BY OPHTHALM IC ROUTE 3 TIMES PER DAY 03/13 completed prn Not Available Not Available Not Available cyanocoba wilma (vit B-12) 1,000 mcg/mL injection solution ONCE A MONTH 08/26 completed RECORDED 08/27/19 12 2:30PM BY BRANDY OSORIO MA, OFFICE VISIT; Not Available Not Available Not Available ferrous sulfate 325 mg (65 mg iron) tablet Take 1 tablet twice a day by oral route with meals for 30 days. active has had 3 iron infusion s and has not been retested again-on hold Not Available Not Available Not Available fluoxetin e 20 mg tablet DAILY IN THE MORNING 01/20 completed RECORDED 01/21/20 13 11:27AM BY AYDE SPEARS MA, OFFICE VISIT; Not Available Not Available Not Available dexametha sone 4 mg tablet 12/17 completed Not Available Not Available Not Available buspirone 10 mg tablet TAKE 1 TABLET BY MOUTH TWICE DAILY. 06/18 completed Not Available Not Available Not Available lisinopri l 10 mg tablet Take 1 tablet every day by oral route for 90 days. 04/02 completed Not Available Not Available Not Available frovatrip qureshi 2.5 mg tablet ONE TIME AT ONSET OF HEADACHE MAY REPEAT AFTER 2 H 04/22 completed RECORDED 04/22/19 13 10:36AM BY LEO MANN, LYNNC, ANNOTATI ON/ADDEN DUM; Not Available Not Available Not Available verapamil ER (PM) 300 mg capsule 24hr pellet CT,ext.re lease TAKE 1 CAPSULE BY MOUTH AT BEDTIME 05/22 completed Not Available Not Available Not Available indometha anna 50 mg capsule Take 1 capsule 3 times a day by oral route as directed for 5 days. 05/26 completed Not Available Not Available Not Available fluocinol one 0.01 % topical body oil APPLY TO AFFECTED AREA 3 TIMES A DAY 2024 active Not Available Not Available Not Avai lable Iron (Ferrous Gluconate ) 325 mg tablet Take 2 tablets every day by oral route as directed for 30 days. 04/02 completed PRN / Due to gastric bypass / takes when exhauste d Not Available Not Available Not Available docusate sodium 100 mg capsule Take 1 capsule twice a day by oral route as needed. 02/01 completed Not Available Not Available Not Available gabapenti n 300 mg capsule TAKE 1 CAPSULE BY MOUTH THREE TIMES A DAY active Not Available Not Available No t Available omeprazol e 20 mg capsule,d elayed release Take 1 capsule every day by oral route for 14 days. 01/03 completed Not Available Not Available Not Available Pain Relief Regular Strength 325 mg tablet 11/24 completed Not Available Not Available Not Available Hycodan (with homatropi ne) 5 mg-1.5 mg/5 mL oral solution Q 4-6 HRS PRN COUGH 06/10 completed RECORDED 07/07/19 09 10:49AM BY LEO MANN PA-C, MEDICATI ON AUTO-ALICE CTIVATIO N; Not Available Not Available Not Available diclofena c sodium 75 mg tablet,de layed release TAKE 1 TABLET BY MOUTH TWICE A DAY active 07/01/24 takes 1 tablet once daily per kidney speciali [facility] Not Available Not Available Not Available cephalexi n 500 mg tablet EVERY 12 HOURS FOR SKIN AND SKIN STRUCTUR E INFECTI 06/06 completed RECORDED 06/28/19 13 1:49PM BY LEO MANN PA-C, MEDICATI ON AUTO-ALICE CTIVATIO N; Not Available Not Available Not Available vitamin B complex tablet Take 1 tablet every day by oral route as directed for 90 days. 2021 active Not Available Not Available Not Avai lable amoxicill in 250 mg capsule TAKE 1 CAPSULE BY MOUTH EVERY 8 HOURS FOR 7 DAYS 02/01 completed Not Available Not Available Not Available morphine ER 15 mg tablet,ex tended release Take 1 tablet every 12 hours by oral route as directed for 30 days. 09/15 completed Not Available Not Available Not Available hydrocodo ne 5 mg-acetam inophen 500 mg tablet Q 4HRS PRN PAIN 03/25 completed RECORDED 04/05/19 13 3:08PM BY YU Johnson MD, MEDICATI ON AUTO-ALICE CTIVATIO N; Not Available Not Available Not Available codeine 10 mg-guaife nesin 100 mg/5 mL oral liquid Take 10 mL every 4-6 hours by oral route at bedtime for 7 days. 10/06 completed Not Available Not Available Not Available lisinopri l 5 mg tablet TAKE 1 TABLET BY MOUTH EVERY DAY 09/21 completed Not Available Not Available Not Available gabapenti n 100 mg capsule Take 1 capsule 4 times a day by oral route for 30 days. 12/20 completed Not Available Not Available Not Available azelastin e 137 mcg (0.1 %) nasal spray USE 2 SPRAYS NASALLY TWICE A DAY DIRECTED 05/22 completed Not Available Not Available Not Available Tylenol-C odeine #3 300 mg-30 mg tablet EVERY 6 HOURS NEEDED 09/02 completed RECORDED 09/03/19 12 2:36PM BY LEO MANN PAZurdoC, MEDICATI ON AUTO-ALCIE CTIVATIO N; Not Available Not Available Not Available ibuprofen 600 mg tablet 02/28 completed Not Available Not Available Not Available levofloxa anna 500 mg tablet active Not Available Not Available No t Available scopolami ne 1 mg over 3 days transderm al patch APPLY 1 PATCH TO THE SKIN EVERY 72 HOURS DIRECTED 05/22 completed NEEDED Not Available Not Available Not Available morphine 15 mg immediate release tablet Take 1 tablet twice a day by oral route as needed for 30 days. 2024 active Not Available Not Available Not Avai lable ondansetr on 4 mg disintegr ating tablet Place 1 tablet every 4 hours by translin gual route as needed for 30 days. active Not Available Not Available No t Available fluticaso ne propionat e 50 mcg/actua tion nasal spray,[employer] INSTILL 2 SPRAYS NASALLY ONCE DAILY DIRECTED active Not Available Not Available No t Available naratript an 1 mg tablet ONE TIME AT ONSET OF HEADACHE MAY REPEAT AFTER 4 H 2013 active Not Available Not Available Not Avai lable Ambien 5 mg tablet Take 1 tablet every day by oral route at bedtime for 30 days. 12/23 completed Not Available Not Available Not Available medroxypr ogesteron e 150 mg/mL intramusc ular suspensio n EVERY 3 MONTHS 01/20 completed RECORDED 01/21/20 13 11:28AM BY AYDE SPEARS MA, OFFICE VISIT; Not Available Not Available Not Available cholecalc iferol (vitamin D3) 125 mcg (5,000 unit) capsule TAKE 1 CAPSULE BY MOUTH EVERY DAY DIRECTED active Not Available Not Available No t Available doxycycli ne hyclate 100 mg tablet TAKE 1 TABLET BY MOUTH TWICE A DAY DIRECTED FOR 10 DAYS 06/17 completed Not Available Not Available Not Available dextroamp hetamine- amphetami ne 5 mg tablet TAKE 1 TABLET BY MOUTH TWICE DAILY. 07/01 completed Not Available Not Available Not Available naproxen 500 mg tablet Take 1 tablet twice a day by oral route for 30 days. 05/26 completed Not Available Not Available Not Available diazepam 5 mg tablet 08/30 completed Not Available Not Available Not Available metoclopr amide 10 mg tablet Take 0.5 tablets 4 times a day by oral route with meals for 14 days. 04/02 completed Not Available Not Available Not Available verapamil ER 240 mg 24 hr capsule,e xtended release TAKE 1 CAPSULE BY MOUTH EVERY DAY 05/22 completed Not Available Not Available Not Available amoxicill in 875 mg-potass ium clavulana te 125 mg tablet TAKE 1 TABLET BY MOUTH EVERY 12 HOURS DIRECTED FOR 10 DAYS 08/18 completed Not Available Not Available Not Available Ventolin HFA 90 mcg/actua tion aerosol inhaler INHALE 2 PUFFS INTO THE LUNGS EVERY 4 TO 6 HOURS NEEDED. active Not Available Not Available No t Available buspirone 15 mg tablet TAKE 1 TABLET BY MOUTH TWICE A DAY active Not Available Not Available No t Available tobramyci n 0.3 %-dexamet hasone 0.1 % eye drops,[employer] pension Instill 1 drop every day by ophthalm ic route for 10 days. 09/21 completed Not Available Not Available Not Available neomycin 3.5 mg/g-poly myxin B 10,000 unit/g-de xameth 0.1 % eye oint APPLY TO RIGHT LOWER LID FOR 10 DAYS AFTER PROCEDUR E 09/21 completed Not Available Not Available Not Available Vitamin D 50,000 unit capsule ONCE A WEEK 07/11 completed RECORDED 07/12/19 11 11:44AM BY LEO MANN PA-C, REFILL REQUEST; THIS ORDER DISCONTI NUED PER MEDI-SPA N. Not Available Not Available Not Available Oyster Shell Calcium-V itamin D3 500 mg-5 mcg (200 unit) tablet TAKE 1 TABLET BY MOUTH TWICE A DAY DIRECTED active Not Available Not Available No t Available albuterol (refill) 90 mcg/actua tion aerosol inhaler 4-6 HRS PRN COUGH/WH EEZE 03/08 completed RECORDED 03/14/20 11 9:52AM BY LEO MANN PA-C, MEDICATI ON AUTO-ALICE CTIVATIO N; Not Available Not Available Not Available enoxapari n 40 mg/0.4 mL subcutane ous syringe Inject 0.4 mL every day by sub-q route at noon for 14 days. 04/14 completed Not Available Not Available Not Available amoxicill in-potass ium clavulana te 1,000 mg-62.5 mg tablet,ex t.rel 12hr TWO TIMES DAILY 12/15 completed RECORDED 01/21/20 13 9:54AM BY SHOBHA HILLMAN, MEDICATI ON AUTO-ALICE CTIVATIO N; Not Available Not Available Not Available metaxalon e 800 mg tablet Take 1 tablet 3 times a day by oral route for 30 days. 08/30 completed Not Available Not Available Not Available atomoxeti ne 40 mg capsule TAKE 1 CAPSULE BY MOUTH EVERY DAY DIRECTED 04/18 completed Not Available Not Available Not Available Vitamin D3 25 mcg (1,000 unit) capsule Take 1 capsule every day by oral route. 04/15 completed Not Available Not Available Not Available codeine-g uaifenesi n oral syrup Q 4 HOURS PRN COUGH 03/15 completed RECORDED 03/15/20 12 10:30AM BY SHOBHA HILLMAN, MEDICATI ON AUTO-ALICE CTIVATIO N; Not Available Not Available Not Available bupropion HCl XL 300 mg 24 hr tablet, extended release TAKE 1 TABLET BY MOUTH EVERY DAY active Not Available Not Available No t Available bupropion HCl XL 150 mg 24 hr tablet, extended release TAKE 1 TABLET BY MOUTH EVERY MORNING TAKE WITH BUPROPIO N XL 300 MG FOR A TOTAL OF 450 MG 06/17 completed Not Available Not Available Not Available lactulose 10 gram/15 mL oral solution TAKE 15 ML BY MOUTH TWICE A DAY BY ORAL ROUTE DIRECTED FOR 5 DAYS. 07/01 completed Not Available Not Available Not Available chlorhexi dine gluconate 0.12 % mouthwash swish and spit daily active Not Available Not Available No t Available hydromorp regina AT BEDTIME 06/13 completed RECORDED 07/07/19 14 11:40AM BY MARIE GURROLA MD, MEDICATI ON AUTO-ALICE CTIVATIO N; Not Available Not Available Not Available Pamelor 1 CAP(S), PRN, 30 DAY(S) 07/11 completed Not Available Not Available Not Available ferrous sulfate TWO TIMES DAILY 08/26 completed RECORDED 08/27/19 12 2:30PM BY BRANDY OSORIO MA, OFFICE VISIT; Not Available Not Available Not Available potassium TAKE 400 MG DAILY active Not Available Not Available No t Available Dilaudid 2 MG, 1-2 TABS EVERY 6 HRS PRN 11/24 completed Not Available Not Available Not Available Zanaflex 1 CAP(S), 4 MG, EVERY 8 HRS, 30 DAY(S) 11/24 completed Not Available Not Available Not Available Hycotuss Expectora nt Q 4HR/PRN 06/10 completed RECORDED 07/07/19 09 10:49AM BY LEO MANN PA-C, MEDICATI ON AUTO-ALICE CTIVATIO N; Not Available Not Available Not Available Multivita mins take 1 tab daily po 2013 active Not Available Not Available Not Avai lable FreeStyle Lite Meter kit Take 1 kit every day by miscell. route for 30 days. 03/13 completed Not Available Not Available Not Available FreeStyle Lite Strips USE TO TEST ONCE DAILY 04/18 completed Not Available Not Available Not Available diclofena c 1 % topical gel 04/11 completed Not Available Not Available Not Available Vitamin D3 50 mcg (2,000 unit) tablet Take by oral route. 01/27 completed Not Available Not Available Not Available Purelax 17 gram/dose oral powder MIX AND DRINK 17 GRAMS INTO A BEVERAGE DAILY DIRECTED 07/18 completed Not Available Not Available Not Available Vitamin D3 125 mcg (5,000 unit) tablet Take 1 tablet every day by oral route. 01/27 completed Not Available Not Available Not Available Vicodin 5 mg-300 mg tablet EVERY 4 HRS active RECORDED 01/30/20 13 7:16PM BY SHOBHA HILLMAN, ANNOTATI ON/RITA DUM; Not Available Not Available Not Available Linzess 145 mcg capsule TAKE 1 CAPSULE BY MOUTH EVERY DAY active Not Available Not Available No t Available ferrous gluconate 256 mg (28 mg iron) tablet 1 po qd 01/27 completed Not Available Not Available Not Available Cepacol Sore Throat (benzocai ne-mentho l) 15 mg-2.6 mg lozenges Take 1 lozenge every 4-6 hours by mucous route as needed for 10 days. 05/01 completed Not Available Not Available Not Available naloxone 4 mg/actuat ion nasal spray GENTLY INSERT THE TIP INTO ONE NOSTRIL AND PRESS THE PLUNGER FIRMLY; IF NO RESPONSE MAY REPEAT EVERY 2 TO 3 MINUTES IN ALTERNAT E NOSTRIL. CALL 911 05/22 completed Not Available Not Available Not Available Move Free Ultra Triple Action (boron) 40 mg-5 mg-3.3 mg tablet Take 1 tablet every day by oral route. 02/05 completed Not Available Not Available Not Available riboflavi n (vitamin B2) 400 mg tablet TAKE 1 TABLET BY MOUTH EVERY DAY DIRECTED active Not Available Not Available No t Available Fish Oil 1,000 mg (120 mg-180 mg) capsule Take 1 capsule every day by oral route. active Not Available Not Available No t Available Flonase Sensimist 27.5 mcg/actua tion nasal spray,[employer] pension Take 1 spray every day by nasal route at bedtime for 30 days. 11/05 completed off formular y Not Available Not Available Not Available Emgality Pen 120 mg/mL subcutane ous pen injector INJECT 240 MG SUBCUTAN EOUSLY IN ALTERNAT E SITES A LOADING DOSE, THEN 120 MG MONTHLY THEREAFT ER. 06/18 completed 02/26/20 24 HAS NOT STARTED YET Not Available Not Available Not Available Aimovig Autoinjec tor 140 mg/mL subcutane ous auto-inje ctor active Not Available Not Available Not Available Nurtec ODT 75 mg disintegr ating tablet TAKE 1 TABLET BY MOUTH ONCE NEEDED FOR MIGRAINE HEADACHE , MAX 1 TAB/CROW Y active Not Available Not Available No t Available Fluzone Quad [id number] (PF) 60 mcg (15 mcg x 4)/0.5 mL IM syringe 02/28 completed Not Available Not Available Not Available Wegovy 2.4 mg/0.75 mL subcutane ous pen injector Inject 0.75 mL every week by subcutan eous route as directed for 28 days, for obesity. 04/01 completed Not Available Not Available Not Available Wegovy 1.7 mg/0.75 mL subcutane ous pen injector INJECT 0.75ML SUBCUTAN EOUS ONCE WEEKLY X 4 WEEKS. 11/10 completed Not Available Not Available Not Available Wegovy 1 mg/0.5 mL subcutane ous pen injector Inject 0.5 mL every week by subcutan eous route as directed for 28 days. 10/14 completed Not Available Not Available Not Available Wegovy 0.25 mg/0.5 mL subcutane ous pen injector INJECT 0.5 ML SUBCUTAN EOUSLY ONE TIME PER WEEK DIRECTED FOR 28 DAYS 08/15 completed Not Available Not Available Not Available Wegovy 0.5 mg/0.5 mL subcutane ous pen injector Inject 0.5 mg every week by subcutan eous route for 28 days. 09/04 completed Not Available Not Available Not Available Paxlovid 300 mg (150 mg x 2)-100 mg tablets in a dose pack TAKE 3 TABLETS BY MOUTH TWICE A DAY FOR 5 DAYS 10/27 completed Not Available Not Available Not Available Zepbound 10 mg/0.5 mL subcutane ous pen injector INJECT 0.5 ML SUBCUTAN EOUSLY WEEKLY DIRECTED 06/18 completed Not Available Not Available Not Available Zepbound 5 mg/0.5 mL subcutane ous pen injector Inject 0.5 mL every week by subcutan eous route as directed for 28 days. 05/26 completed Not Available Not Available Not Available Zepbound 15 mg/0.5 mL subcutane ous pen injector Inject 15 mg every week by subcutan eous route for 28 days. 2024 active Not Available Not Available Not Avai lable Zepbound 12.5 mg/0.5 mL subcutane ous pen injector Inject 0.5 mL every week by subcutan eous route as directed for 28 days. 07/23 completed Not Available Not Available Not Available Zepbound 7.5 mg/0.5 mL subcutane ous pen injector INJECT 0.5 ML SUBCUTAN EOUSLY ONE TIME PER WEEK DIRECTED FOR 28 DAYS 05/26 completed Not Available Not Available Not Available Vitals Date Recorded Body height Provider Name an d Address Organization Details Last Updated DateTime 12/25/2023 162.56 cm Perri Ng MA [facility] 12/25/2023 14:32:14 Date Recorded Body height Body mass index (BMI) Body weight Heart rate Oxygen saturation Oxygen saturation in Arterial blood by Pulse oximetry Body temperature Systolic blood pressure Diastolic blood pressure Provider Name and Address Organization Details Last Updated DateTime 162.56 cm 47.6 kg/m2 625333. 79 g 67 /min 98 % 98 % 97.7 [degF] 130 mm[Hg] 81 mm[Hg] Tierra Arevalo LPN [facility] 10:24:28 Date Recorded Body height Body mass index (BMI) Body weight Provider Name and Address Organization Details Last Updated DateTime 02/26/2024 162.56 cm 47.5 kg/m2 621633.09 g Carroll english MA [facility] 02/26/2024 13:49:50 Date Recorded Body height Body mass index (BMI) Body weight Heart rate Oxygen saturation Oxygen saturation in Arterial blood by Pulse oximetry Body temperature Systolic blood pressure Diastolic blood pressure Provider Name and Address Organization Details Last Updated DateTime 162.56 cm 43.9 kg/m2 110478. 65 g 76 /min 97 % 97 % 98 [degF] 133 mm[Hg] 84 mm[Hg] Carroll calvert MA [facility] 5 15:52:06 Date Recorded Body height Body mass index (BMI) Body weight Oxygen saturation Oxygen saturation in Arterial blood by Pulse oximetry Heart rate Body temperature Provider Name and Address Organization Details Last Updated DateTime 162.56 cm 43.4 kg/m2 786211. 87 g 97 % 97 % 81 /min 97.7 [degF] Ashley Staples [facility] 5 15:47:38 Date Recorded Body weight Body mass index (BMI) Body height Provider Name and Address Organization Details Last Updated DateTime 07/27/2024 810003.91 g 42.6 kg/m2 162.56 cm Carroll english [facility] 07/27/2024 14:56:51 Social History Question Answer Notes LastModified by Organizat ion Details LastModified Time Tobacco Smoking Status Never Smoker Brandy preciado [facility] 10/22/2013 11:09:41 Do You Have An Advance Directive? Yes Information not available 07/18/2021 Is Blood Transfusion Acceptable In An Emergency? Yes Information not available 05/27/2015 What Is Your Level Of Caffeine Consumption? Occasional Information not available 04/20/2021 How Much Tobacco Do You Chew? None Information not available 08/30/2016 What Type Of Diet Are You Following? SPECIFIC Low Sugar Information not available 11/10/2016 Which Illicit Or Recreational Drugs Have You Used? None Information not available 08/30/2016 Live Alone Or With Others? With Others 2 Daughters Information not available 07/18/2021 Do You Take Precautions To Prevent Distracted Driving? Yes Information not available 05/27/2015 How Often Do You Need To Have Someone Help You When You Read Instructions, Pamphlets, Or Other Written Material From Your Doctor Or Pharmacy? Never Information not available 05/27/2015 Have You Served In The ? No Information not available 08/30/2016 Have You Or Anyone In Your Household Had Any Of The Following Symptoms In The Last 14 Days: Sore Throat, Cough, Chills, Body Aches For Unknown Reasons, Shortness Of Breath For Unknown Reasons, Loss Of Smell, Loss Of Taste, Fever At Or Greater Than 100 Degrees Fahrenheit? No Information not available 02/29/2020 Are You Or Anyone In Your Household A Health Care Provider Or Emergency Responder? No Information not available 02/29/2020 To The Best Of Your Knowledge Have You Been In Close Proximity To Any Individual Who Tested Positive For COVID-19? No Information not available 02/29/2020 Have You Recently Traveled To A COVID-19 High Risk Area Or Gathering In The Last 10 Days? No Information not available 03/31/2020 What Was The Date Of Your Most Recent Tobacco Screening? 07/01/2024 Information not available 07/01/2024 How Many Children Do You Have? 2 Neyda Information not available 04/26/2020 Do You Use Protection During Sex? No Information not available 11/10/2016 Do You Use Your Seat Belt Or Car Seat Routinely? Yes Information not available 04/20/2021 Seat Belts Used Routinely Yes Information not available 07/18/2021 Are You Sexually Active? Yes Information not available 11/10/2016 Smoke Alarm In Home Yes Information not available 07/18/2021 Do You Have Smoke And Carbon Monoxide Detectors In Your Home? Yes Information not available 04/20/2021 At What Age Did You Start Smoking Tobacco? 0 Information not available 08/30/2016 Are You Passively Exposed To Smoke? No Information not available 05/27/2015 How Much Tobacco Do You Smoke? No Information not available 05/27/2015 Do You Use Sunscreen Routinely? Yes Information not available 05/27/2015 How Many Years Have You Smoked Tobacco? 0 Information not available 08/30/2016 Sex: Unknown Functional Status Question Answer Note LastModified by Organizat ion Details LastModified Time Do you use any illicit or recreational drugs? No Information not available 11/23/2022 Do you or have you ever used any other forms of tobacco or nicotine? No Information not available 11/23/2022 What is your level of alcohol consumption? Occasional socially Information not available 11/10/2016 Do you or have you ever used smokeless tobacco? Never used smokeless tobacco Information not available 04/14/2019 Are you currently employed? Yes [employer] Information not available 05/28/2023 Are you able to walk? [employer]OREST Information not available 05/28/2023 Are you able to care for yourself? 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 Never used electronic cigarettes Information not available 07/18/2021 What is your exercise level? Occasional Information not available 04/20/2021 Mental Status None recorded. Family History Relationship Description Onset Age of this Age Resolved Age Notes LastModified by Organization Details LastModified Time Mother Diabetes mellitus 68 [email or web address] Not available 01/2016 11:29:01 Mother Carcinoma in situ of breast BRCA mutati on Not available 07/18/2021 08:29:22 Mother Malignant tumor of breast [email or web address] s Not available 04/20/2021 15:22:30 Mother Arthritis [email or web address] s Not available 04/20/2021 15:22:30 Father Carcinoma in situ of lung 53 Smoker /contr actor Not available 07/18/2021 08:29:22 Unspecified Relation Malignant tumor of colon Matern al side (BRCA mutati on) [email or web address] s Not available 04/20/2021 15:22:30 Paternal Grandfather Disease of liver [email or web address] s Not available 04/20/2021 15:22:30 Brother Depressive disorder [email or web address] s Not available 04/20/2021 15:22:30 Brother Obesity [email or web address] s Not available 04/20/2021 15:22:30 Daughter Attention deficit hyperactivit y disorder [email or web address] s Not available 04/20/2021 15:22:30 Medical History Condition Response Other N Gout N Kidney Stones N Blood Diseases N Hyperthyroidism N Breast Cancer Y Lung Disease N Hypothyroidism N Depression Y COPD N Defects or Inherited Disease N Breast Problem Y Anesthesia Complications N Headaches/Migraines Y Varicose Veins Y Anxiety Disorder Y Muscle, Joint, or Bone Problems Y Obesity Y Vision or Eye Problems N Arthritis Y Head Injury/Concussion N Polyps N Infertility N Congenital Anomalies N Acid Reflux (GERD) N Cancer N Stroke N ADHD Y Endometriosis N High Cholesterol N Liver Disease N Fibromyalgia N Kidney Disease N Heart Problems N Ear or Hearing Problems N Hospitalizations N Thyroid Problems N GI Problems N Acne N Skin Problems N Eating Disorder N Anemia Y Constipation N Bladder Problems N Mental Illness N Ovarian Cancer N Diabetes N Blood Transfusions N Seizures/Epilepsy N Tuberculosis N AIDS/HIV N Congestive Heart Failure (CHF) N Eczema N Diverticulitis N Abuse/Domestic Violence N Asthma N Allergies Y Reflux/GERD N Hepatitis N Pulmonary Embolism N Hypertension N Osteoporosis N Chicken Pox N Autism Spectrum Disorder (ASD) N Gynecological History Statement/Question Response Date of Last Colonoscopy 10/24/2015 Most Recent Bone Density 12/09/2018 Menses Monthly N Date of Last Pap Smear 05/26/2020 Most Recent Mammogram 07/05/2010 LMP Unknown Obstetrics History GPAL:G 0 P 0 0 0 0 Immunizations Vaccine Type Date Status Note Provider Nam e and Address Organization Details Recorded Time Influenza, split virus, quadrivalent, PF 0 completed Carroll Mcnulty [place] null, [place] - [facility] 10/27/2021 15:08:44 COVID-19, mRNA, LNP-S, PF, 100 mcg/0.5mL dose or 50 mcg/0.25mL dose 1 completed NERY Mehta, [facility] 10/27/2021 15:08:44 COVID-19, mRNA, LNP-S, PF, 100 mcg/0.5mL dose or 50 mcg/0.25mL dose 1 completed NERY Mehta, [facility] 10/27/2021 15:08:44 COVID-19 vaccine, vector-nr, rS-Ad26, PF, 0.5 mL 1 completed NERY Mehta, [facility] 03/01/2021 09:12:35 Influenza, MDCK, quadrivalent, PF 1 completed NERY Mehta, [facility] 03/01/2021 09:12:35 Influenza, split virus, quadrivalent, PF 9 completed NERY Rouse, [facility] 05/18/2021 11:16:56 Influenza, split virus, trivalent, PF 4 completed NERY Mehta, [facility] 10/27/2021 15:08:44 Influenza, split virus, quadrivalent, PF 8 completed NERY Mehta, [facility] 10/27/2021 15:08:44 Influenza, split virus, quadrivalent, PF 7 completed NERY Mehta, [facility] 10/27/2021 15:08:44 Td (adult), 2 Lf tetanus toxoid, preservative free, adsorbed 1 completed Nava Arcosyong preciado [facility] 07/07/2020 08:59:59 Influenza, split virus, trivalent, preservative 1 completed Nava Arcos ilana [facility] 07/07/2020 08:59:59 Influenza, split virus, trivalent, preservative 2 completed Nava preciado, [facility] 07/07/2020 08:59:59 Tdap 2 completed Nava preciado, [facility] 07/07/2020 08:59:59 COVID-19, mRNA, LNP-S, PF, 50 mcg/0.5 mL 5 completed Navayong rpeciado, [facility] 05/08/2024 09:28:43 Pneumococcal conjugate PCV21, polysaccharide HMZ112 conjugate, PF 5 completed NERY Mehta, [facility] 06/18/2024 15:52:20 Influenza, split virus, trivalent, PF 5 completed NERY Mehta, [facility] 06/18/2024 15:52:20 Past Encounters Encounter ID Performer Location Encounter Start Date Encounter Closed Date Diagnosis/Indication Diagnosis SNOMED-CT Code Diagnosis ICD10 Code Diagnosis Note [id number] FAUSTO Nolasco Main Office [address] [facility] [address] [place] [address] 10/22/2013 10:57:50 10/22/2013 11:47:39 Swollen legs [id number] Surgical follow-up [id number] Swelling [id number] auto[facility]Comm erce [address] [facility] [place] [address] 07/30/2006 00:00:00 [id number] auto[employer]Comm erce [address] [facility] [place] [address] 05/14/2008 00:00:00 [id number] auto[employer]Comm erce [address] [facility] [place] [address] 05/14/2008 00:00:00 [id number] autoEComm erc [address] [facility] [place] [address] 05/14/2008 00:00:00 [id number] auto[facility] erce [address] [place] [address] 05/14/2008 00:00:00 [id number] auto[employer] erce [address] [place] [address] 05/31/2008 00:00:00 [id number] autoEComm erce [address] [facility] [address] [place] [address] 05/31/2008 00:00:00 [id number] auto[employer] erce [address] [facility] [address] [place] [address] 05/31/2008 00:00:00 [id number] auto[employer]Comm erce [address] [facility] [address] [place] [address] 05/31/2008 00:00:00 [id number] auto[employer] erce [address] [facility] [place] [address] 07/14/2008 00:00:00 [id number] auto[employer]Comm erce [address] [facility],[address] [place] [address] 07/14/2008 00:00:00 [id number] auto[employer]Comm erce [address] [facility] [place] [address] 07/14/2008 00:00:00 [id number] auto[employer]Comm erce [address] [facility] [place] [address] 07/14/2008 00:00:00 [id number] autoEComm erce [address] [facility] [place] [address] 10/12/2008 00:00:00 [id number] auto[employer]Comm erce [address] [facility] [address] [place] [address] 10/12/2008 00:00:00 [id number] autoEComm erce [address] [facility],[address] [place] [address] 12/20/2008 00:00:00 [id number] auto[employer] erce [address] [place] [address] 12/20/2008 00:00:00 [id number] auto[employer] erce [address] [place] [address] 12/20/2008 00:00:00 [id number] autoEComm erce [address] [place] [address] 12/20/2008 00:00:00 [id number] auto[employer]Comm erce [address] [place] [address] 12/31/2008 00:00:00 [id number] autoEComm erce [address] [facility] [address] [place] [address] 12/31/2008 00:00:00 [id number] autoEComm erce [address] [facility] [place] [address] 12/31/2008 00:00:00 [id number] autoEComm erce [address] [facility] [address] [place] [address] 12/31/2008 00:00:00 [id number] autoEComm erce [address] [facility] [place] [address] 03/29/2009 00:00:00 [id number] autoEComm erce [address] [facility],[address] [place] [address] 03/29/2009 00:00:00 [id number] autoEComm erce [address] [facility] [place] [address] 03/29/2009 00:00:00 [id number] autoEComm erce [address] [facility],[address] [place] [address] 06/13/2009 00:00:00 [id number] autoEComm erce [address] [facility] [place] [address] 06/13/2009 00:00:00 [id number] autoEComm erce [address] [facility],[address] [place] [address] 05/18/2010 00:00:00 [id number] auto[employer] erce [address] [place] [address] 05/18/2010 00:00:00 [id number] autoEComm erce [address] [place] [address] 07/06/2010 00:00:00 [id number] autoEComm erce [address] [place] [address] 07/06/2010 00:00:00 [id number] autoEComm erce [address] [place] [address] 02/06/2011 00:00:00 [id number] auto[employer]Comm erce [address] [place] [address] 02/06/2011 00:00:00 [id number] autoEComm erce [address] [facility] [address] [place] [address] 02/06/2011 00:00:00 [id number] autoEComm erce [address] [facility] [address] [place] [address] 02/12/2011 00:00:00 [id number] autoEComm erce [address] [facility] [address] [place] [address] 02/12/2011 00:00:00 [id number] autoEComm erce [address] [facility] [address] [place] [address] 02/12/2011 00:00:00 [id number] autoEComm erce [address] [place] [address] 02/12/2011 00:00:00 [id number] autoEComm erce [address] [place] [address] 02/19/2011 00:00:00 [id number] autoEComm erce [address] [facility] [address] [place] [address] 02/19/2011 00:00:00 [id number] autoEComm erce [address] [place] [address] 02/19/2011 00:00:00 [id number] autoEComm erce [address] [place] [address] 08/27/2011 00:00:00 [id number] autoEComm erce [address] [place] [address] 08/27/2011 00:00:00 [id number] autoEComm erce [address] [place] [address] 08/27/2011 00:00:00 [id number] autoEComm erce [address] [facility] [address] [place] [address] 08/27/2011 00:00:00 [id number] autoEComm erce [address] [facility] [address] [place] [address] 09/26/2011 00:00:00 [id number] autoEComm erce [address] [facility] [address] [place] [address] 09/26/2011 00:00:00 [id number] autoEComm erce [address] [facility] [address] [place] [address] 11/16/2011 00:00:00 [id number] autoEComm erce [address] [facility] [place] [address] 2 11/16/2011 00:00:00 [id number] autoEComm erce [address] [facility] [address] [place] [address] 11/16/2011 00:00:00 [id number] autoEComm erce [address] [facility] [address] [place] [address] 11/23/2011 00:00:00 [id number] autoEComm erce [address] [facility] [address] [place] [address] 11/23/2011 00:00:00 [id number] autoEComm erce [address] [facility],[address] [place] [address] 01/29/2012 00:00:00 [id number] auto[facility]Comm erce [address] [place] [address] 01/29/2012 00:00:00 [id number] auto[employer]Comm erce [address] [place] [address] 03/07/2012 00:00:00 [id number] autoEComm erce [address] [place] [address] 03/07/2012 00:00:00 [id number] autoEComm erce [address] [place] [address] 2 03/07/2012 00:00:00 [id number] autoEComm erce [address] [place] [address] 03/07/2012 00:00:00 [id number] autoEComm erce [address] [facility] [address] [place] [address] 03/15/2012 00:00:00 [id number] autoEComm erce [address] [facility],[address] [place] [address] 03/15/2012 00:00:00 [id number] autoEComm erce [address] [facility] [address] [place] [address] 2 03/15/2012 00:00:00 [id number] autoEComm erce [address] [facility],[address] [place] [address] 04/14/2012 00:00:00 [id number] autoEComm erce [address] [place] [address] 04/14/2012 00:00:00 [id number] autoEComm erce [address] [facility] [address] [place] [address] 05/30/2012 00:00:00 [id number] autoEComm erce [address] [facility] [address] [place] [address] 05/30/2012 00:00:00 [id number] autoEComm erce [address] [place] [address] 08/05/2012 00:00:00 [id number] autoEComm erce [address] [place] [address] 08/05/2012 00:00:00 [id number] autoEComm erce [address] [place] [address] 08/18/2012 00:00:00 [id number] autoEComm erce [address] [facility] [address] [place] [address] 2 08/18/2012 00:00:00 [id number] autoEComm erce [address] [facility] [address] [place] [address] 2 11/14/2012 00:00:00 [id number] autoEComm erce [address] [facility],[address] [place] [address] 11/14/2012 00:00:00 [id number] autoEComm erce [address] [facility],[address] [place] [address] 12/05/2012 00:00:00 [id number] autoEComm erce [address] [facility],[address] [place] [address] 12/05/2012 00:00:00 [id number] autoEComm erce [address] [facility] [place] [address] 2 01/20/2013 00:00:00 [id number] autoEComm erce [address] [facility] [address] [place] [address] 01/28/2013 00:00:00 [id number] autoEComm erce [address] [facility] [place] [address] 01/28/2013 00:00:00 [id number] autoEComm erce [address] [facility],[address] [place] [address] 05/14/2013 00:00:00 [id number] autoEComm erce [address] [facility] [place] [address] 2 05/14/2013 00:00:00 [id number] autoEComm erce [address] [facility] [place] [address] 09/14/2013 00:00:00 [id number] autoEComm erce [address] [facility] [place] [address] 09/14/2013 00:00:00 [id number] Cortez Franco [facility] Main Office [address] [address] [place] [address] 11/23/2013 10:06:11 11/23/2013 10:54:16 Adult health examination [id number] 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 [id number] Robin Urbina [facility] Main Office [address] [address] [place] [address] 01/15/2014 11:08:24 01/15/2014 12:09:22 Migraine 70469017 prednisone taper for the acute migraine amitryptyl ine for prophylaxi s. she will start at 10mg and every 3 days increase by 10mg with target dose between 20mg and 50mg. She has f/u in 3 wks. Neck pain 52852823 she a sks for refill, she is due. was prescribed by [facility] but she stopped going there. We did refill it a couple months ago. [id number] Marie luis MD Main Office [address] [address] [place] [address] 01/26/2014 13:37:06 01/26/2014 14:36:15 Insomnia 663090177 Needs infl uenza immunization 486133878 Family his tory of breast cancer 468694093 dbl mastectomy /prophylac tic. after pos. test BRCA gene Pain of sh oulder region 66444883 pt on tramadol/ can cause serotonin syndrome w/ migraine meds Body mass index 40+ - severely obese 283263399 [id number] Marie luis MD Main Office [address] [place] [address] 09/21/2014 11:36:13 09/21/2014 12:22:34 Sleep disorder 50814471 pt uses trazadone and tizanidine / Pt does not feel like she needs an antidepres gely med for now. Pruritic disorder 415343428 pt has had rxns to both opiates and antibiotic s Hyperlipidemia 56549676 Neck pain 66338369 [id number] Marie luis MD Main Office [address] [address] [place] [address] 05/27/2015 13:47:51 05/27/2015 14:58:06 Adult health examination 271116370 Z00.00 Liver enzy mes outside reference range 849967115 R94.5 Pt reports this is not new/Labs have not been checked in years Body mass index 40+ - severely obese 897111136 Z68.42 Allergy to drug 17034321 2 T50.905D Motion sickness 50476494 T75.3XXS [id number] Gato Berman PA-C Main Office [address] [place] [address] 07/13/2015 14:26:40 07/13/2015 15:49:08 Herpes zoster 3676663 B02.9 Post-herpe tic polyneuropathy 84161138 B02.23 [id number] Gato Berman PA-C Main Office [address] [place] [address] [place] [address] 07/21/2015 14:36:32 07/21/2015 16:02:34 Herpes zoster 6839100 B02.9 25 minute office visit with greater than 50% of the visit face-to-fa ce with the patient and/or family providing counseling and/or coordinati on of care. Monoclonal gammopathy (clinical) 678253433 D47.2 f/u c hemonc 6.7 -- will cc lab results Ultrasound scan abnormal 835859423 R93.8 Liver enzy mes outside reference range 675202882 R94.5 Post-herpe tic polyneuropathy 10993525 B02.23 [id number] Gato Berman PA-C Main Office [address] [address] [place] [address] 08/03/2015 15:55:22 08/03/2015 17:05:03 Acute pharyngitis 143632397 J02.9 Cough 03171669 R05 ? early sinusitis Liver enzy mes outside reference range 370293379 R94.5 ? autoimmune hepatitis, has f/u c GI tomorrow Monoclonal gammopathy (clinical) 218301370 D47.2 f/u c hemonc 6.7 -- will cc lab results Dizziness 960171420 R42 25 minute office visit with greater than 50% of the visit face-to-fa ce with the patient and/or family providing counseling and/or coordinati on of care. [id number] Marie luis MD Main Office [address] [address] [place] [address] 09/26/2015 10:35:01 09/26/2015 11:27:26 Body mass index 40+ - severely obese 400079563 Z68.42 Liver enzy mes outside reference range 143823784 R94.5 Pt reports this is not new Pain of joint 20776176 M 25.50 pt finds that ibuprofen works on wrist pain//solares xicam works on spine/neck /back pain Monoclonal gammopathy of uncertain significance 068775656 D47.2 Dr Rodríguez is following pt via [facility] [id number] Gato Berman PA-C Main Office [address] [address] [place] [address] 11/30/2015 15:33:44 11/30/2015 16:31:21 Herpes zoster 2280544 B02.9 25 minute office visit with greater than 50% of the visit face-to-fa ce with the patient and/or family providing counseling and/or coordinati on of care. [id number] Marlene Berman PA-C Main Office [address] [address] [place] [address] 12/21/2015 15:02:49 12/21/2015 15:46:38 Fatigue 64347196 R53.83 Probably related to monoclonal gammopathy . Fadi do additional labs to r/o Lymes disease, EBV, renal insufficie ncy and diabetes. R/o subacute thyroiditi s as thyroid is tender. Pain of joint 49803484 M 25.50 [id number] Scott Zamora MD Main Office [address] [address] [place] [address] 01/06/2016 15:12:01 01/06/2016 16:07:40 Herpes zoster 5577327 B02.9 Consistent with herpes virus infection. Given recurrence and frequency of them will treat for an acute flare as well as start on a suppressiv e regimen. Advised to call with any problems on medication . [id number] Marie luis MD Main Office [address] [address] [place] [address] 04/06/2016 15:02:07 04/06/2016 16:06:15 Low back pain 155880455 M54.5 stable/pt will try PT Mar 2016 and f/u w/ Worker's Comp and if needed physiatry Degenerati on of cervical intervertebral disc 61250189 M50.30 continue nsaids and tizanidine qhs / skelaxin during day Postconcus trav syndrome 83188806 F07.81 [id number] FAUSTO Nolasco Main Office [address] [address] [place] [address] 08/30/2016 15:10:45 08/30/2016 15:50:55 Medial epicondylitis 98151224 M77.01 Continue sx treament, meloxicam, ice, rest, compressio n. Will refer to hand surgery for further eval [id number] Marie luis MD Main Office [address] [address] [place] [address] 11/10/2016 09:17:51 11/10/2016 10:11:52 Adult health examination 870272367 Z00.00 Needs infl uenza immunization 481484849 Z23 Body mass index 40+ - severely obese 798082535 Z68.42 Traumatic brain injury 822246090 S06.2X6D post concussion injury Apr 2016-neuro psych-Emmonak nsky [id number] Marie luis MD Main Office [address] [address] [place] [address] 11/08/2016 11:37:14 11/08/2016 12:37:31 Pain in right knee 3516944374 19366 M25.561 Impaired f asting glycemia 332363104 R73.01 Pain in right foot 65201 11911 67160 M79.671 [id number] Gato Berman PA-C Main Office [address] [address] [place] [address] 11/22/2016 10:03:17 11/22/2016 11:29:13 Low back pain 801050111 M54.5 pt already has rtw note for next saturday - but is in reference to her knee - she is concerned about other m-s issues - advised her to call us next wk if needs add'l paperwork faxed over to cover her (if needed). will send to PT for evaluation of all of her c/o. f/u 1 month Pain of hip region 58841 002 M25.551 pt requests to see ortho for this reason Knee pain 47462089 M25.5 61 cont to f/u c [facility] Foot pain 04109389 M79.6 71 cont to f/u c [facility] [id number] Marie luis MD Main Office [address] [address] [place] [address] 02/22/2017 15:14:08 02/22/2017 16:24:21 Sinusitis 56334759 J32.9 [id number] Marie luis MD Main Office [address] [address] [place] [address] 05/14/2017 14:39:02 05/14/2017 15:55:33 Injury of head 26466651 S09.90XS pt is recovered from head injury and needs only OTC meds Traumatic brain injury 259115218 S06.2X6S post concussion injury Apr 2015-neuro psych-Emmonak nsky-2017 [id number] Marlene Berman PA-C Main Office [address] [address] [place] [address] 07/15/2017 14:02:55 07/15/2017 14:40:03 Fall W19.XXXA Injury of breast 3661125 2 S29.9XXA Pt. is advised to contact her breast plastic surgeon whom she is planning to have reconstruc tion procedure scheduled with for check on her implant status . She is too tender to order ultrasound at this point. Advised to continue pain meds. Injury of shoulder region 369022707 S49.91XA Pt. will see orthopedis t this afternoon on recheck on the shoulder due to recent surgery and fall. [id number] Yu herron MD Main Office [address] [address] 09/16/2017 09:33:01 09/19/2017 08:11:58 [id number] Jordan Iverson MD Main Office [address] [address] 01/18/2018 11:49:32 01/18/2018 13:12:47 Needs influenza immunization 379398892 Z23 Cellulitis of finger 275 54570 L03.012 Pain of breast 44157336 N64.4 Body mass index 40+ - severely obese 651682811 E66.01 Z68.41 [id number] Gato Berman PA-C Main Office [address] [address] 02/05/2018 13:35:03 02/05/2018 14:37:35 Foot pain 28191248 M79.671 will check xray to r/o missed hairline fx - ? if was missed d/t acute edema wrapped foot c jourdan bandage - finished at level of ankle - taught pt how to do this - also rec cont ibu, elevate, consider ice [id number] Tyrell Ordonez MD Main Office [address] [address] 04/11/2018 15:13:49 04/11/2018 16:22:18 Adult health examination 403729586 Z00.00 due for pap, she will call to schedule appt. Screening for malignant neoplasm of cervix 678019707 Z12.4 Anemia 344212135 D64.9 stopped iron per hematology , will recheck. Liver enzy mes outside reference range 918431822 R94.5 Hyperlipidemia 25716194 E78.5 Fatigue 31408840 R53.83 Injury of eye region 282 725652 S05.91XA Acute sinusitis 07061455 J01.90 zpak as directed, hydration, rest, tylenol/ ibuprofen as needed, cough med as needed. [id number] Jordan Iverson MD Main Office [address] [address] [place] [address] 08/12/2018 15:56:52 08/12/2018 16:52:33 Essential hypertension 32628448 I10 start BP meds. Return with BP log in couple of weeks. Hypoglycemia 257737983 E 16.2 check glucose at by fingerstic k if symptomati c. Radha. will be made with endocrinol ogist for the evaluation . Heart murmur 46762268 R0 1.1 [id number] Jordan Iverson MD Main Office [address] [address] [place] [address] 08/20/2018 15:10:51 08/20/2018 16:23:53 Essential hypertension 16194570 I10 Blood pressure stable today. Continue lisinopril as prescribed . 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 Intermitte nt palpitations 918733369 R00.2 recommend to test HR and glucose level while symptomati c. Proceed with scheduled echocardio gram. Consider further work up if needed. [id number] Scott Zamora MD Main Office [address] [address] [place] [address] 11/24/2018 14:48:56 11/24/2018 15:31:50 Cellulitis of right lower eyelid 1426208801 42669 H00.032 History and exam findings suggestive of secondary cellulitis from stye. Will complete course of po abx. Call ophtho for eval inb/worse. [id number] Tyrell Ordonez MD Main Office [address] [address] [place] [address] 11/27/2018 15:11:34 11/27/2018 15:49:29 Essential hypertension 81228565 I10 BP well controlled . continue current meds. Hypoglycemia 057425099 E 16.2 Morbid obesity 002397029 E66.01 [id number] Tyrell Ordonez MD Main Office [address] [address] [place] [address] 12/05/2018 10:27:14 12/05/2018 11:18:39 Cellulitis of right lower eyelid 4874182784 99488 H00.032 sx continue despite 10 day course of abx. pustule noted to right lower lid. will attempt referral to oculofacia l for possible drainage. Will be seen by Dr. Molina on Saturday at 4:30pm. [id number] Yu herron MD Main Office [address] [address] 12/26/2018 13:42:51 12/26/2018 15:07:38 Needs influenza immunization 386205957 Z23 [id number] Yu herron MD Main Office [address] [address] 01/05/2019 10:45:31 01/05/2019 11:18:23 Fracture of tibia 38081476 S82.209A encouraged to do ankle pumps both sides, get up often, discussed lowering risk of DVT, ortho wrote out of work for 6 weeks to start, probably longer on morhine, one very 4 hours, gave a weeks supply, call in a week to get refill and tell how often she is requiting pain meds, discussed addictive potential of opiates. she has nausea, got an IV form [facility] last night Fall W19.XXXA [id number] Tyrell Ordonez MD Main Office [address] [address] 01/27/2019 12:51:17 01/27/2019 13:50:28 Fracture of tibia 66382108 S82.201D NEOCelsa, DR CABALLERO. has follow up coming up. Essential hypertension 15229365 I10 BP well controlled . continue current meds. Morbid obesity 899885319 E66.01 Nausea and vomiting 1693 1999 R11.2 has had N/V since this started, vomiting up most of her food. unable to pinpoint the cause, it comes and goes. She is on nausea meds but still happening. trying to eatn what she can tolerate. Motion sickness 08389661 T75.3XXA Constipation 75244356 K5 9.00 Fall on sa me level from slipping, tripping or stumbling 419740376 W01.0XXD [id number] Jordan Iverson MD Main Office [address] [address] [place], [place] [address] 02/02/2019 11:05:00 02/02/2019 12:14:07 Pain in right foot 9795858167 70534 M79.671 POssible injury when patient stumbled on it coming out of the car and lost balance. NO obvious problem at this time. Symptoms were transient and resolved. PT. reassured. [id number] Tyrell Ordonez MD Main Office [address] [address] [place] [address] 02/27/2019 11:05:14 02/27/2019 11:58:07 Nausea 719225383 R11.0 Fracture of tibia 895384 02 S82.201D STER[place]ING, saw PA saturday, needs to continue NWB, is in wheelchair . Will fill med every 6 hours for 30 days to get her through her trip in [place], encouraged to try to space out med as much as possible. will re-eval when she returns from [place] and will start weaning at that point. Patient does not wisht o be on morphine custodial, she cannot take NSAID but is hoping she will be able to do so once she has more healing. agrees to wean SEMAJ after her trip, she will also try spacing med as much as she can Essential hypertension 45667570 I10 BP on lower side. cut lisinopril in half for now. if BP < 90/50 stop hold med for a few days and recheck BPs. Morbid obesity 515830530 E66.01 [id number] Tyrell Ordonez MD Main Office [address] [address] [place], [place] [address] 04/02/2019 09:17:31 04/02/2019 11:08:31 Fracture of tibia 49431682 S82.201D only got 28 pills at last refill on 03/27/18. will need earlier refill, she will call when she is due. will get update 04/09 after she follows up with orthopedic s. will keep med the same, next refill will start weaning to every 8 hours and down from there. Nausea 897422388 R11.0 still having motion sickness and nausea. needs to use patches. throwing up still. likely related to morphine. Essential hypertension 00862698 I10 Taking 5mg lisinopril and doing well. BP is normal today. Morbid obesity 883889284 E66.01 Insomnia 092949746 G47.0 0 needs right quantity of med as it was filled inappropri ately, will refill. Motion sickness 82807318 T75.3XXA suspect motion sickness due to mirphine, will refill Fall W19.XXXD [id number] Tyrell Ordonez MD Main Office [address] [place] [address] 04/14/2019 15:17:48 04/14/2019 16:21:32 Adult health examination 640719772 Z00.00 due for pap, she will call to schedule appt. Fracture of tibia 883026 02 S82.201D may start PT and weight bear as tolerated. she is in a lot of pain after weight bearing and doing PT. Essential hypertension 61399906 I10 Taking 5mg lisinopril and doing well. BP is normal today. Anemia 472354509 D64.9 stopped iron per hematology , will recheck. Family his tory of Hypercholesterolemia 171985895 Z83.49 Fatigue 04429252 R53.83 [id number] Tyrell Ordonez MD Main Office [address] [place] [address] 05/12/2019 14:55:45 05/12/2019 15:46:18 Motion sickness 12351600 T75.3XXA suspect motion sickness due to morphine, will refill Chronic pain syndrome 37 1922268 G89.4 Fracture of tibia 736768 02 S82.201D will keep med at every 8 hours for now, stop PT until MRI results back. f/u with ortho 05/24. Pain in right knee 23176 15125 86425 M25.561 patient has had knee pain since her fall in december and this continues, her recovery has been very slow, knee is swollen, has weakness etc. will order knee MRI to r/o knee injury from fall as well. [id number] Scott Zamora MD Main Office [address] [place] [address] 06/15/2019 13:38:06 06/15/2019 16:23:54 Cough 33962666 R05 cont otc meds as dir, cont self-isola tion - reviewed guidelines and advised pt to check our website and will send to portal advised pt only to go to ER if significan t sob where may need to be admitted, o/w avoid going to hospital as there is no outpt covid19 testing at this current time Dyspnea 869175191 R06.00 Nausea 236103700 R11.0 cont cecilia, scop patch as dir Migraine 34033883 G43.90 9 she is out of triptan - will refill - pt states she has rec'd 12 tabs (not 9) in the past Suspected COVID-19 71116 4004 Z03.818 see above [id number] Yu herron MD Main Office [address] [facility] [address] [place] [address] 06/19/2019 17:34:07 06/22/2019 06:41:00 Suspected COVID-19 621076533 Z03.818 pt has classic Covid 19 symptoms, she has not been tested, is 7 days into the coughing illness. she has intermitta nt SOB but does not sound in distress and is speaking in full sentences during our call. no role for ER at this time, continue inhaler, tylenol for pain in chest is pt gets significan t shortness of breath then she needs to go to ER Persistent cough 5835046 02 R05 from presumed Covid 19, cannot take codeine. using otc med Dyspnea on exertion 6084 5006 R06.09 see above [id number] Tyrell Ordonez MD [facility] [address]40 [facility] [address] [place] [address] 08/04/2019 10:49:11 08/04/2019 14:02:51 Rib pain 005629405 R07.81 Only taking morphine and meloxicam so no new pain meds added. She will call her plastic surgeon, Dr Bazzi to let him know that her pain and the popping sensation was in the area of her prior sugery. [id number] Scott Zamora MD [facility] [address] [facility] [address] [facility] [place] [address] 09/22/2019 13:05:12 09/22/2019 16:05:40 Pain in right lower limb 395441415 M79.604 pt already has f/u apptmt's c foot & knee specialist s at [facility], but appears that her RLE is tight/pain ful in many locations - apparently [facility] had backed off in-person visits d/t covid, so will get her back to PT - cont meds as dir by pcp as well [id number] Yu herron MD [address] [facility] [address] [place] [address] 02/29/2020 14:28:39 03/07/2020 10:08:37 Headache 40884304 R51.9 mild bilateral, if continues needs exam, hydrate well Paresthesia 21583295 R20 .2 of tongue, bilateral come and go, no motor symptoms, office visit needed. pt will arrange check labs [id number] Yu herron MD Main Office [facility] [address] [place] [address] 03/14/2020 14:00:26 03/14/2020 14:48:57 Fatigue 13305183 R53.83 needs to sleep 8 hours consistent ly, pt will also get evaluated for sleep apnea Spasm 99262927 R25.2 check labs Glossodynia 42136297 K14 .6 check labs [id number] Tyrell Ordonez MD [address] [place] [address] 03/31/2020 13:34:25 04/01/2020 12:47:33 Diarrhea 63647603 R19.7 stool studies ordered, she was on abx 3 weeks ago s/p foot surgery, ? cdiff related. Abdominal pain 07280735 R10.9 Patient was on abx 3 weeks ago after foot surgery. Also nites she ate some albanian cookies that no one else ate. having watery diarrhea mutliple times per day despite maxing out immodium and not eating anything. Also having nocturnal sx that wake her from sleep. Will check labs and CT to r/o cdiff/ colitis. Exposure t o viral disease 1882783610 71291 Z03.818 [id number] Tyrell Ordonez MD Main Office [address] [facility] [address] [place] [address] 04/15/2020 14:42:50 04/15/2020 16:30:12 Adult health examination 190625744 Z00.00 due for pap, she will call to schedule appt. Essential hypertension 23777026 I10 Hyperlipidemia 45433768 E78.5 Hypoglycemia 774904392 E 16.2 Pain in ri ght lower limb 577355466 M79.604 Morbid obesity 960858025 E66.01 Postoperative pain 59486 9007 G89.18 s/p foot surgery, weakness, still using morphine can't take ibuprofen and this causes more pain. Narcotic contract done today. Abdominal pain 14134950 R10.9 Vitamin D deficiency 347 15418 E55.9 Bilateral osteoarthritis of knees 0787070596 61618 M17.0 Distractibility 75859891 R41.840 Inattention 41754078 R41 .840 on amantadine , will increase to 200mg in am and 100mg at bedtime. Having increased difficulty since working from home, lots of distractio ns. [id number] Scott Zamora MD [facility] [address] [address] [place] [address] 04/26/2020 13:36:33 04/28/2020 13:16:06 Migraine 29103477 G43.909 no sig help c abortive agent - will give trial c pred pulse - take c food, and have pt f/u c JT - consider preventive agent like topamax (? she tried it back in her 20s) vs. get neuro eval --- wonder if pt is experienci ng LONDON as a SE of amantadine vs other? [id number] Tyrell Ordonez MD [facility] [address] [place] [address] 05/04/2020 06:41:17 05/05/2020 09:36:56 Migraine 63615207 G43.509 Ongoing migraine for 2 weeks now. still there, meds take the edge off but the headache has not resolved. hydrate, rest, start amitriptyl ine at bedtime. Essential hypertension 16941351 I10 Chronic pain syndrome 37 4258506 G89.4 Neck pain 72675139 M54.2 Postconcus trav syndrome 23817857 F07.81 Was picking up something off the ground and banged the back of her head on the stainless steel handle of her stove. The next day woke up with migraine headache. suspect may be related [id number] Tyrell Ordonez MD [facility] [address] [facility] [address] [place] [address] 05/26/2020 13:14:52 05/26/2020 15:36:55 Migraine 23467253 G43.509 Ongoing migraine for 2 weeks now. still there, meds take the edge off but the headache has not resolved. hydrate, rest, Will increase amitriptyl ine to 50mg. calls out to [facility] neuro and dr christiansen to get her an appt sooner. Neck pain 60669683 M54.[address] head was negative. Have tried mutliple meds for L[place]ON without relief. [id number] Tyrell Ordonez MD [address] [address] [place] [address] 02/01/2021 08:15:16 02/01/2021 11:57:57 Chronic pain syndrome 467332849 G89.4 chronic pain syndrome. bilateral knee pain, chronic issues. will fill for 2 more months to get her through until her PE. Acute sinusitis 10407373 J01.90 augmentin as directed, hydration, rest, tylenol/ ibuprofen as needed. Bereavement 47011726 Z63 .4 her passed on January 03, was very sick and came home on hospice, 4 days later. during this she lost her job, her kids have been struggling , she is not looking forward to holidays. Moderate r ecurrent major depression 35444555 F33.1 [id number] Tyrell Ordonez MD [facility] [address] [facility] [address] [place] [address] 03/01/2021 08:20:34 03/01/2021 10:30:51 Bereavement 56779708 Z63.4 her passed on January 03, was very sick and came home on hospice, 4 days later. during this she lost her job, her kids have been struggling , she is not looking forward to holidays. Moderate r ecurrent major depression 67892223 F33.1 PHQ9 score 23/27 she feel situationa l at this time. has not been on wellbutrin a full 4 weeks yet, feels it is too early to tell and has a lot of outside stress. will wait a couple more weeks and send portal message on how it is going. Generalize d anxiety disorder 75328714 F41.1 JAYNE score 17/21 today. she is worried she may have covid as her brother has it. Acute sinusitis 69756417 J01.90 Took augmentin x 10 days, felt better but sx are back now. She will get Covid tested today or tomorrow. swelling and pain in face/ sinuses. if covid negative may consider a different abx. [id number] Tyrell Ordonez MD Main Office [address] [facility] [address] [place] [address] 04/20/2021 14:44:08 04/20/2021 16:39:19 Essential hypertension 66598179 I10 Hyperlipidemia 61082424 E78.5 Hypoglycemia 079395404 E 16.2 Pain in ri ght lower limb 366084511 M79.604 right knee Morbid obesity 926580561 E66.01 Vitamin D deficiency 347 19238 E55.9 Moderate r ecurrent major depression 56200194 F33.1 PHQ9 score 24/, wellbuitri n dose does not feel like enough. she is not sleeping at night. Bereavement 30366519 Z63 .4 her passed on January 03, was very sick and came home on hospice, 4 days later. during this she lost her job, her kids have been struggling , she is not looking forward to holidays. Generalize d anxiety disorder 28917855 F41.1 JAYNE score 20/21 today. she is worried she may have covid as her brother has it. Chronic pain syndrome 37 5568002 G89.4 chronic pain syndrome. bilateral knee pain, chronic issues. will fill for 2 more months to get her through until her PE. Still having knee pain and had procedure on her knee- nerve block but didn't help. Through pain management Fatigue 64504316 R53.83 Insomnia 470525265 G47.0 0 needs right quantity of med as it was filled inappropri ately, will refill. Chronic re current sinusitis 065521804 J32.9 Migraine 01259724 G43.50 9 aimovig was not approved, uses rizatripta n as needed but feel she does not get enough pills. [id number] Tyrell Ordonez MD Main Office [address] [facility] [address] [facility] [place] [address] 05/18/2021 11:12:12 05/18/2021 12:06:27 Adult health examination 268240769 Z00.00 HM UTD, she is unsure if she needs mammo due to implants, she is supposed to have breast surgery to fix her implant on left which keeps flipping. Screening for malignant neoplasm of cervix 859276777 Z12.4 Inattention 91509853 R41 .840 was on amantadine for this but feels it is ineffectiv e. She is struggling with depression , will trial strattera for this. Snoring 38256345 R06.83 needs sleep study. Hyperlipidemia 30457969 E78.5 Anemia 630337441 D64.9 on iron supplement but has extreme fatigue Fatigue 46932875 R53.83 Low back pain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 significance 205382816 D47.2 followed by hematology Anemia 479341388 D64.9 was told by heme not to take oral iron and no infusion needed at this time. She is feeling tired, thinks she should be on iron. History of bypass of stomach 166210651 Z98.84 does not absorb well, is on multiple vitamins Granuloma annulare 79389 009 L92.0 [id number] Scott Zamora MD Main Office [address] [facility] [address] [facility] [place] [address] 07/01/2024 15:34:23 07/01/2024 16:43:23 Pain of right shoulder joint 6737390796 6310760 M25.511 pending sx next saturday - pt worried may have to cx if not feeling better - rtc 2 days for re-eval - as per pt she does not need formal pre-op clearance 4.25 - pt brought in fmla paperworka ssisted her to the best of my abilitypt advised to have checkout copy forms to enter into EMR Generalize d anxiety disorder 44250516 F41.1 see above Health Concerns Section Related Observation LastModified by Organization Detai ls LastModified Time None Recorded Concern Status LastModified by Organization Details LastModified Time None Recorded Advance Directives Directive Y: Payers Encounter Date Sequence Insurance Name Policy Number Policy Buchanan Covered Member ID Buchanan Member ID Guarantor Name 12/25/2023 2 [place] [facility] Mireya Schmidt-Ll oyd [id number] Mireya Schmidt-Lloy d 12/25/2023 1 [facility] PLAN (MEDICAID HMO) [id number] Mireya Schmidt-Ll oyd [id number] Mireya Schmidt-Lloy d 02/19/2024 2 [place] Mireya Schmidt-Ll oyd [id number] Mireya Schmidt-Lloy d 02/19/2024 1 [facility] PLAN (MEDICAID HMO) [id number] Mireya Schmidt-Ll oyd [id number] Mireya Schmidt-Lloy d 02/26/2024 2 [place] [facility] Mireya Schmidt-Ll oyd [id number] Mireya Schmidt-Lloy d 02/26/2024 1 [facility] NET PLAN (MEDICAID HMO) [id number] Mireya Schmidt-Ll oyd [id number] Mireya Schmidt-Lloy d 06/18/2024 2 [place] Mireya Schmidt-Ll oyd [id number] Mireya Schmidt-Lloy d 06/18/2024 1 [facility] PLAN (MEDICAID HMO) [id number] Mireya Schmidt-Ll oyd [id number] Mireya Murphy walter 07/01/2024 2 [place] [facility] Mireya Hand oyd [id number] Mireya Murphy walter 07/01/2024 1 [facility] PLAN (MEDICAID HMO) [id number] Mireya Hand dillonyd [id number] Mireya martinez Notes Date Note Type Note Provider Name and Address Organization Details Recorded Time 12/25/2023 text/html Generic HPI TemplateReported bypatient.Notes:Video visit:Patient is on doxepinIssue is not falling asleep at night but falling asleep during the day anytime.Sleeping at night is not a problem, wakes up every 3-4 hours but usually due to painCan't predict when it will happen. has noticed it's worse after ADHD med wears off.Taking 20mg in the morning adderall feels it wears off typically around 2pm. usually she also drinks energy drink, espresso or multiple coffees. Last sleep study was normal If she works a full week, is out for the entire weekend- drained, cannot function. Last neuro visit- 4 months ago they agree she needs higher dose of adderall. fax was sent to her psychiatrist by neurology as well. Saw OBRUCHI, was told she cannot take hormone therapy,Saw Dr. Vernon for MGUS and is being screened for pancreatic cancer, did breast exam. Cortez Franco, [facility] [address] [address], [place], [address], [facility] 12/25/2023 15:45:20 02/19/2024 text/html Abdominal PainRe ported bypatient.Location:LLQ ; RLQ; epigastric Quality:bloating Severity:mild Duration:constant; 2 weeks Modifying Factors:laying down Associated Symptoms:no fever; no chills; no blood in the urine; no shortness of breath Other:denies possible Mireya is a 53yr old F who presents for GI symptoms x2 week. Hx of gastric bypass(2006) and appendectomy/cholecyst ectomy (1991). Reports on 02/06 she attended a staff holiday democrat- symptoms of flatulence, abdominal discomfort (diffuse), bloating shortly afterwards. Symptoms continued and were constant; diarrhea, flatulence, bloating, nausea, and dry-heaving. Has tried conservative measurements such as natural remedies. Relief with laying down flat. denies of any known measureable fever. Continues to have BM. SHOBHA GALDAMEZ [address] [facility] [address], [place], [address], [facility] 02/19/2024 12:31:50 02/26/2024 text/html Abdominal PainRe ported bypatient.Location:LLQ ; RLQ; epigastric Quality:bloating Severity:mild Duration:constant; 2 weeks Modifying Factors:laying down Associated Symptoms:no fever; no chills; no blood in the urine; no shortness of breath Other:denies possible pregnancyGeneric HPI TemplateReported bypatient.Notes:Video visit: in f/.u as above. was seen for n.v.d last week.Is at work- went back yesterday- trying not to each much or drink due to having abd pain, cramping in intestinal area on RLQ or mid left. has very loose stool and very little comes out.XR showed stool throughout colon. She believes this started as food poisoning.She is not taking anything for constipation.She did file for FMLA- was out of work 02/12/24-02/25/24- has intermittent FMLA but needs form for this time frame. Mireya is a 53yr old F who presents for GI symptoms x2 week. Hx of gastric bypass(2006) and appendectomy/cholecyst ectomy (1991). Reports on 02/06 she attended a staff holiday democrat- symptoms of flatulence, abdominal discomfort (diffuse), bloating shortly afterwards. Symptoms continued and were constant; diarrhea, flatulence, bloating, nausea, and dry-heaving. Has tried conservative measurements such as natural remedies. Relief with laying down flat. denies of any known measureable fever. Continues to have BM. FAUSTO Nolasco [address] [facility] [address], [place], [address], [facility] 02/26/2024 14:27:51 06/18/2024 text/html Generic HPI TemplateReported bypatient.Notes:Presen ts for PE,Has lost 21 lbs since last visit, is on zepbound, will increase to 12.5mg weekly. -Seeing kidney specialist tomorrow, last creatinine was 1.78 with GFR 30. -Saw Dr. Shine- hematology 06/09, did no re-start iron- was told she does not need it but is feeling tired, %sat low and ferritin low. Had bloodwork through Dr. Shine in May. -Has a med prescriber for MDD/ anxiety/ ADHD.on adderall- 30mgER and 10mg PRN, bupropion, buspirone, citalopram, doxepin- PHQ-9 , JAYNE .She has so much going on medically and psychologically. Her in 2020 and she has been struggling since. - Is working FT, is in fear due to education budget cuts for [place], concerned about job security and finances. Cortez Franco [facility] [address] [address], [place], [address], [facility] 06/18/2024 16:48:12 07/01/2024 text/html here to help patricia l out fmla forms- Booking notes: I need to do the accommodation request for my job, ergo eval at my job, and update for PFMLA. (I forgot to do this with you at my physical and I need it Done SEMAJ ROQUE, Mireya - Reason for visit: Follow-Up - Application: Consumer Scheduling rev chart - JT filled out fmla form 12.24 -- should be good until 9.25but pt brought in additional forms for her employer that she needs help with Gato Berman PA-C [address] [facility] [address], [place], [address], [facility] 07/01/2024 17:55:43 OBGyn Episode No OBEpisode recorded.
== END 2024-07-30 16:26 | disposition home or self-care (01) ==
LOC: HO.HSMS 15:07
PROVIDERS: PCP Internal Medicine; Visit Provider Nurse Practitioner Family
DX: G47.19 Other hypersomnia (principal); F07.81 Postconcussional syndrome; G44.309 Post-traumatic headache, unspecified, not intractable
CPT/HCPCS: 99214; G2211

== ENCOUNTER → 2024-07-30 15:06 | Outpatient (BNVA) | payer OTHER, SELFPAY | PROVIDERS: PCP Internal Medicine; Visit Provider Nurse Practitioner Family | DX: G43.109 Migraine with aura, not intractable, without status migrainosus (principal); G47.19 Other hypersomnia; F07.81 Postconcussional syndrome | CPT/HCPCS: 99212 ==

== ENCOUNTER → 2024-10-23 19:30 | Outpatient (REF) | payer OTHER, SELFPAY | LOC: HO.SL 19:30 | PROVIDERS: PCP Student in an Organized Health Care Education/Training Program; Visit Provider Nurse Practitioner Family | DX: G47.31 Primary central sleep apnea (principal); G47.39 Other sleep apnea; R06.83 Snoring; G47.19 Other hypersomnia; G47.9 Sleep disorder, unspecified | CPT/HCPCS: 95810 ==

== ENCOUNTER → 2024-10-23 19:54 | Outpatient (BNV) | payer OTHER, SELFPAY | PROVIDERS: PCP Student in an Organized Health Care Education/Training Program; Visit Provider Psychiatry & Neurology Neurology | DX: G47.31 Primary central sleep apnea (principal) | CPT/HCPCS: 95810 ==

== ENCOUNTER 2024-12-02 09:24 | Outpatient (AMB) | payer OTHER, SELFPAY ==
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
[2024-12-02 09:29] VITALS: BP 162/100; PULSE 70; O2SAT 97; BMI 34.3
--- OUTSIDE RECORDS SUMMARY | 2024-12-02 11:06 | XMS_ITS | Clinical Summary ---
Author Organization [facility] Address [address] [place] [address] Care Team Providers Care Environmental Lead Name Role Phone Laurita Banegas MD Primary Care Provider [phone] Encounters Date Type Department Care Team Description 10/08/[address] [address] Maggie Dodd CGC 09/29/[address] [address] Maggie Dodd CGC 09/29/[address] [address] Maggie Dodd CGC 09/29/2024 Results Follow-Up [address] [address] Maggie Dodd CGC 09/17/2024 9:00 AM EDT Evaluation [address] [address] Maggie Dodd CGC Family history of genetic disease carrier (Primary Dx); Family history of breast cancer; Encounter for nonprocreative genetic counseling from Last 3 Months Social History Tobacco Use Types Packs/Day Years Used Date Smoking Tobacco: Never Assessed Comments Unknown Sex and Gender Information Value Date Recorded Sex Assigned at Female 09/15/2024 1:02 PM EDT Legal Sex Female 4:52 PM EDT Gender Identity Not on file Sexual Orientation Not on file Plan of Treatment Health Maintenance Due Date Last Done Comments Cervical Cancer Screening 1968 Cologuard 1968 Colon Cancer Screening 1968 Colonoscopy 1968 FOBT / Fit Test 1968 HIV Screening 1968 HPV and Pap Smear 1968 Hepatitis C Screening 1968 Pap Smear 1968 Sigmoidoscopy 1968 Hepatitis B Vaccines (1 of 3 - 19+ 3-dose series) 09/13/1987 Mammogram 2008 Zoster Vaccines (1 of 2) 2018 DTaP,Tdap,and Td Vaccines (2 - Td or Tdap) 11/22/2021 11/23/2011, 02/18/2001 Alcohol/Substance Use Screening 03/18/2024 Depression Screening and Follow-Up 03/18/2024 Social Drivers of Health Yani ual Screening 03/18/2024 Influenza Vaccine (#1) 2024 5, 02/11/2021, 01/30/2020, Additional history exists RSV Vaccine (60+ years old a nd patients) (1 - 1-dose 75+ series) 09/13/2043 COVID-19 Vaccine Completed 05/06/2024, , 07/05/2020, Additional history exists Pneumococcal Vaccine: 50+ Years Completed 5 Procedures * Due to [place] [employer] law, this organization might not be sharing negative HIV tests. Procedure Name Priority Date/Time Associated Diagnosis Comments GENETIC TEST, OUTSIDE LAB Routine 09/24/2024 2:21 PM EDT from Last 3 Months Results * Due to [place] [employer] law, this organization might not be sharing negative HIV tests. * (ABNORMAL) Genetic Test, Outside Lab (09/24/2024 2:21 PM EDT) us Radu Rivas MD LAB BLOOD ORDERABLES Final Result INVITAE from Last 3 Months Insurance [employer] Care Teams Environmental Lead Relationship Specialty Start Date End Date Laurita Banegas MD [address] [id number] PCP - General 09/14/24
--- OUTSIDE RECORDS SUMMARY | 2024-12-02 11:06 | XMS_ITS | Encounter Summary ---
Author Organization [facility] Address [address] [place] [address] Care Team Providers Care Physics Technician Name Role Phone Laurita Banegas MD Primary Care Provider [phone] Encounter Details Date Type Department Care Team (Late st Contact Info) Description 09/29/2024 Results Follow-Up [facility] [address] [place] [address] Maggie Dodd, [facility] [address] [place] [address] Social History Tobacco Use Types Packs/Day Years Used Date Smoking Tobacco: Never Assessed Comments Unknown Sex and Gender Information Value Date Recorded Sex Assigned at Female 09/15/2024 1:02 PM EDT Legal Sex Female 4:52 PM EDT Gender Identity Not on file Sexual Orientation Not on file documented as of this encounter Plan of Treatment Not on file documented as of this encounter Visit Diagnoses Not on filedocumented in this encounter Care Teams Physics Technician Relationship Specialty Start Date End Date Laurita Banegas MD [address] [phone] PCP - General 09/14/24 documented as of this encounter
--- OUTSIDE RECORDS SUMMARY | 2024-12-02 11:06 | XMS_ITS | Clinical Summary ---
Author Organization [facility] Address [address] [place] [address] Phone Care Team Providers Care Profile Grinder Name Role Phone Unavailable Primary Care Provider Unavailabl e Allergies Active Allergy Reactions Criticality Noted Date Comments Sulfamethoxazole-Trimethoprim 2024 Clindamycin 06/19/2024 Codeine 06/19/2024 Hydromorphone 06/19/2024 Cephalexin 06/19/2024 Latex 06/19/2024 Oxycodone-Acetaminophen 06/19/2024 Quinolones 06/19/2024 Tramadol 06/19/2024 Medications No known medications Active Problems Problem Noted Date Diagnosed Date Acute nontraumatic kidney injury, not otherwise specified 10/23/2024 Stage 3a chronic kidney disease 10/23/2024 Monoclonal gammopathy of undetermined significan ce (MGUS) 10/23/2024 Encounters Date Type Department Care Team Description 10/23/2024 4:00 PM EDT Office Visit [facility], [address] [place] [address] Theo Camargo DO Acute nontraumatic kidney injury, not otherwise specified (HCC) (Primary Dx); Stage 3a chronic kidney disease (HCC); Monoclonal gammopathy of undetermined significance (MGUS) from Last 3 Months Social History Tobacco Use Types Packs/Day Years Used Date Smoking Tobacco: Never Assessed Comments Unknown Sex and Gender Information Value Date Recorded Sex Assigned at Not on file Legal Sex Female 9:03 AM EDT Gender Identity Not on file Sexual Orientation Not on file Last Filed Vital Signs Vital Sign Reading Time Taken Comments Blood Pressure 128/72 10/23/2024 4:22 PM EDT Pulse 68 10/23/2024 4:22 PM EDT Temperature - - Respiratory Rate - - Oxygen Saturation - - Inhaled Oxygen Concentration - - Weight - - Height - - Body Mass Index - - Plan of Treatment Upcoming Encounters Date Type Department Care Team (Late st Contact Info) Description 02/26/2025 4:00 PM EST Office Visit [facility], [address] [place] [address] Theo Camargo, [address] [place] [id number] Health Maintenance Due Date Last Done Comments Breast Cancer Screening 1968 Hepatitis B Vaccine (1 of 3 - 19+ 3-dose series) 09/13/1987 Pneumococcal Vaccine: 50+ Ye ars (1 of 2 - PCV) 09/13/1987 Colorectal Cancer Screening: Annual FOBT 2017 Colorectal Cancer Screening: Colonoscopy 2017 Colorectal Cancer Screening: Sigmoidoscopy 2017 Influenza Vaccine (#1) 2024 5, 02/11/2021, 01/30/2020, Additional history exists Insurance [facility] Medicaid Medicaid [place]
--- OUTSIDE RECORDS SUMMARY | 2024-12-02 11:06 | XMS_ITS | Encounter Summary ---
Author Organization [facility] Address [address] [place] [address] Phone Care Team Providers Care Die Maker Apprentice Name Role Phone Laurita Banegas MD Primary Care Provider [phone] Encounter Details Date Type Department Care Team (Late Contact Info) Description 06/16/2024 Documentation Only [facility] [address] [place] [address] Sophia MarleyCOURTENAY, [place] [address] [place] [address] Social History Tobacco Use Types [...] Visit [facility] [address] [place] [address] Theo Caamrgo [address] [place] [address] documented as of this encounter Visit Diagnoses Not on filedocumented in this encounter Care Teams Die Maker Apprentice Relationship Specialty Start Date End Date Laurita Banegas MD [phone] [phone] PCP - General Family Medicine 06/16/24 10/22/24 documented as of this encounter
--- OUTSIDE RECORDS SUMMARY | 2024-12-02 11:06 | XMS_ITS | Clinical Summary ---
Author Organization [facility] Address [address] [place], [place] [id number] Phone Care Team Providers Care Fun House Operator Name Role Phone Pcp, Unknown Primary Care Provider Unavailabl e Allergies Active Allergy Reactions Criticality Noted Date Comments Adhesive 01/28/2017 Blistering and skin peels off Sulfamethoxazole-Trimethopri m 01/28/2017 Moderate itching Cephalexin 01/28/2017 itching Clindamycin Hcl 01/28/2017 Severe angioedema Codeine 01/28/2017 Massive itching Hydromorphone 01/28/2017 itching Latex, Natural Rubber Medium 01/28/2017 Swelling and redness Levofloxacin 01/28/2017 Severe, tendon to rupture Tramadol 01/28/2017 itching Medications amantadine HCl (SYMMETREL) 100 mg capsule 2 capsules Active b complex vitamins (B COMPLETE) tablet Active calcium carbonate (OS-TIMO) 1,500 mg (600 mg elemental) tablet 1 tablet with meals Active gabapentin (NEURONTIN) 300 MG capsule 1 capsule Active ibuprofen (ADVIL,MOTRIN) 800 MG tablet 1 tablet Active ferrous gluconate 256 mg (28 mg elemental) Tab Activ e meloxicam (MOBIC) 15 MG tablet 1 tablet Active multivitamin (DAILY MULTI-VITAMIN) per tablet 1 tablet Active tiZANidine (ZANAFLEX) 4 MG tablet 1 tablet as needed Active TRAZODONE HCL (TRAZODONE ORAL) Active cholecalciferol , vitamin D3, (VITAMIN D3) 1,000 unit capsule Active benzonatate (TESSALON) 200 MG capsule TAKE 1 CAPSULE BY MOUTH THREE TIMES A DAY FOR 10 DAYS *NC BY INS* 05/01/2023 Active Active Problems No known active problems Social History Tobacco Use Types Packs/Day Years Used Date Smoking Tobacco: Never Smokeless Tobacco: Never Tobacco Cessation:Counseling Given: Not Answered Education Answer Date Recorded Are you interested in more education? Not on patricia e 07/13/2022 Are you concerned about learning? Not on file 07/13/2022 No 07/13/2022 No 07/13/2022 Digital Access Answer Date Recorded No 08/11/2022 No 08/11/2022 Reliable internet access at home? Not on file 08/11/2022 Device with a working camera? Not on file Comments Unknown Sex and Gender Information Value Date Recorded Sex Assigned at Female 07/12/2021 6:12 PM EDT Legal Sex Female 9:36 PM EDT Gender Identity Female 07/12/2021 6:12 PM EDT Sexual Orientation Not on file Last Filed Vital Signs Vital Sign Reading Time Taken Comments Blood Pressure 161/91 05/15/2023 2:55 PM EST Pulse 68 05/15/2023 2:55 PM EST Temperature 36.2 C (97.1 F) 05/15/2023 2:55 PM EST Respiratory Rate 12 05/15/2023 2:55 PM EST Oxygen Saturation 98% 05/15/2023 2:55 PM EST Inhaled Oxygen Concentration - - Weight 140.6 kg (310 lb) 05/15/2023 2:55 PM EST Height 170.2 cm (5' 7 ) 05/15/2023 2:55 PM EST Body Mass Index 48.55 05/15/2023 2:55 PM EST Plan of Treatment Health Maintenance Due Date Last Done Comments Adult Td,Tdap Booster 1968 LIPID PANEL 1968 DEPRESSION SCREENING 1980 HEPATITIS C SCREENING 1986 HIV ONE-TIME SCREENING (18-6 5 YEARS) 1986 PAP SMEAR 1989 MAMMOGRAM 07/05/2012 07/05/2010 COLOGUARD 2013 COLONOSCOPY 2013 COLORECTAL CANCER SCREENING 2013 FIT TEST 2013 FOBT 2013 SIGMOIDOSCOPY 2013 VIRTUAL COLONOSCOPY 2013 PNEUMOCOCCAL VACCINES (50+ years) (1 of 1 - PCV) 2018 ZOSTER VACCINES (1 of 2) 2018 INFLUENZA VACCINE (#1) 2024 , 12/26/2018 SCREENING FOR DIABETES 11/09/2024 11/09/2021 COVID-19 VACCINE (2 6 season) 2024 06/07/2020 SMOKING STATUS SCREENING (On ce After 26 Yrs) Completed 05/15/2023 HEPATITIS A VACCINES Aged Out No long er eligible based on patient's age to complete this topic HIB VACCINES Aged Out No longer eligi ble based on patient's age to complete this topic MENINGOCOCCAL VACCINES (ACWY) Aged Out No longer eligible based on patient's age to complete this topic MENINGOCOCCAL VACCINES (B) Aged Out N o longer eligible based on patient's age to complete this topic Medical Devices Not on file Insurance Vdolg O [employer] [address] [place], [place] [address] [employer] [employer] [address] [place] [address] [address] [address] [place] [address] [address] [place] [address] [place] [address] [facility] Care Teams Fun House Operator Relationship Specialty Start Date End Date Pcp, Unknown PCP - General 07/12/21 Additional Source Comments The information contained in this document represents components of the legal health record. It is not the complete legal health record.[facility]
--- OUTSIDE RECORDS SUMMARY | 2024-12-02 11:06 | XMS_ITS | Encounter Summary ---
Author Organization [facility] Address [address] [place] [id number] Phone Care Team Providers Care Sales Coordinator Name Role Phone Pcp, Unknown Primary Care Provider Unavailabl e Encounter Details Date Type Department Care Team (Late st Contact Info) Description 07/12/2021 Procedure Pass [facility], Ct Scan - [address] [address] Social History Tobacco Use Types Packs/Day Years Used Date Smoking Tobacco: Never Smokeless Tobacco: Never Comments Unknown Sex and Gender Information Value Date Recorded Sex Assigned at Female 07/12/2021 6:12 PM EDT Legal Sex Female 9:36 PM EDT Gender Identity Female 07/12/2021 6:12 PM EDT Sexual Orientation Not on file documented as of this encounter Functional Status * Calculated C-SSRS Risk Score (Lifetime/Recent) Answer Date of Assessment Author No Risk Indicated 07/12/2021 6:11 PM EDT Kiya Rivera CNP * [place] Suicide Severity Rating Scale (Screener/Recent Self-Report) Question Answer Date of Assessment Author 1. Wish to be (Past 1 Month) No 07/12/2021 6:11 PM EDT Kiya Rivera CNP 2. Non-Specific Active Suicidal Thoughts (Past 1 Month) No 07/12/2021 6:11 PM EDT Kiya Rivera CNP 6. Suicidal Behavior (Lifetime) No 07/12/2021 6:11 PM EDT Kiya Rivera CNP documented as of this encounter Plan of Treatment Not on file documented as of this encounter Visit Diagnoses Not on filedocumented in this encounter Additional Health Concerns Infection Onset Date Last Indicated Resolved Time CoV-Risk 05/15/2023 05/15/2023 05/26/2023 1:22 AM EST documented as of this encounter Care Teams Sales Coordinator Relationship Specialty Start Date End Date Pcp, Unknown PCP - General 07/12/21 documented as of this encounter Additional Source Comments The information contained in this document represents components of the legal health record. It is not the complete legal health record[facility]
== END 2024-12-02 10:40 | disposition home or self-care (01) ==
LOC: HO.HSMS 09:25
PROVIDERS: PCP Student in an Organized Health Care Education/Training Program; Visit Provider Nurse Practitioner Family
DX: G44.309 Post-traumatic headache, unspecified, not intractable (principal); F07.81 Postconcussional syndrome; G47.39 Other sleep apnea
CPT/HCPCS: 99214

== ENCOUNTER 2024-12-02 09:24 | Outpatient (REF) | payer OTHER, SELFPAY ==
[2024-12-02 13:09] LABS: MANUAL DIFF FLAG NO
[2024-12-02 13:15] LABS: Hematocrit 40.2 % (37.0-47.0); Hemoglobin 13.4 g/dl (12.0-16.0); Imm Gran Abs Auto 0.03 X10*3/uL (0.00-0.03); Imm Gran Pct Auto 0.6 % (0.0-0.4); Lymphocytes Absolute Auto 1.3 X10*3/uL (1.2-4.9); Mean Corpuscular HGB Conc 33.3 g/dl (31.0-35.0); Mean Corpuscular Hemoglobin 31.8 pg (27.0-33.0); Mean Corpuscular Volume 95.5 fL (80.0-98.0); NRBC Abs Auto 0.000 X10*3/uL (0.0-0.012); NRBC Pct Auto 0.0 /100WBC (0.0-0.2); Platelet Count 180 X10*3/uL (160-400); Red Blood Count 4.21 X10*6/uL (4.20-5.50); White Blood Count 5.1 X10*3/uL (4.8-10.8)
[2024-12-02 14:10] LABS: Alanine Aminotransferase 35 U/L (0-31); Albumin Level 4.3 g/dL (3.5-5.0); Alkaline Phosphatase 104 U/L (39-117); Anion Gap 9 (12-20); Aspartate Amino Transferase 32 U/L (5-31); Blood Urea Nitrogen 24 mg/dL (9-16); Calcium 9.3 mg/dL (8.4-10.2); Carbon Dioxide 20 mmol/L (22-29); Chloride 116 mmol/L (96-108); Estimated Glomerular Filt Rate 42; Iron 42 mcg/dL (30-160); Percent Iron Saturation 18 % (15-50); Potassium 4.3 mmol/L (3.3-5.1); Sodium 141 mmol/L (135-145); Total Iron Binding Capacity 234 mcg/dL (228-428); Total Protein 7.2 g/dL (6.5-8.0); Unsaturated Iron Binding 192 ug/dL
[2024-12-02 14:24] LABS: Folate 10.1 ng/mL (> or = 4.0); Vitamin B12 592 pg/mL (200-900)
[2024-12-02 14:31] LABS: Ferritin 305 ng/mL (10-250)
[2024-12-03 17:48] LABS: Lyme Abs Screen <0.90 index
[2024-12-08 15:24] LABS: Vitamin D 25-OH, D2 <4 ng/mL; Vitamin D 25-OH, D3 47 ng/mL; Vitamin D 25-OH, Total 47 ng/mL (30-100)
== END 2024-12-02 09:25 | disposition home or self-care (01) ==
LOC: HO.HKASLDS 09:24
PROVIDERS: PCP Student in an Organized Health Care Education/Training Program; Visit Provider Nurse Practitioner Family
DX: G43.109 Migraine with aura, not intractable, without status migrainosus (principal); F07.81 Postconcussional syndrome; M81.0 Age-related osteoporosis without current pathological fracture; G47.39 Other sleep apnea; G47.10 Hypersomnia, unspecified; D64.9 Anemia, unspecified; F32.A Depression, unspecified
CPT/HCPCS: 36415; 80053; 82306; 82607; 82728; 82746; 83540; 84443; 85025; 86617; 86618; 99212